=== PATIENT | female | born 1945 | race Caucasian/White ===

== ENCOUNTER → 2017-09-20 09:46 | Outpatient (CLI) | payer BC, SELFPAY ==
[2017-09-20 10:50] LABS: Hemoglobin A1C% w Est Avg Glu 5.1 % (4.0-6.0)
[2017-09-20 10:55] LABS: Alanine Aminotransferase 38 IU/L (9-52); Albumin 4.2 g/dL (3.5-5.0); Albumin Globulin Ratio 1.4 (1.0-2.8); Alkaline Phosphatase 83 U/L (38-126); Aspartate Aminotransferase 38 IU/L (14-36); BUN Creatinine Ratio 21.3 (6-22); Bilirubin Total 0.7 mg/dL (0.2-1.3); Blood Urea Nitrogen 17 mg/dL (7-17); Calcium 9.2 mg/dL (8.4-10.2); Carbon Dioxide 31 mmol/L (22-32); Chloride 101 mmol/L (98-107); Cholesterol 189 mg/dL (140-199); Estimated Glomerular Filt Rate > 60.0 mL/min (>60); Glucose 91 mg/dL (80-110); HDL Cholesterol 90 mg/dL (40-60); HEMOLYSIS 50 (0-50); LDL Cholesterol Calculated 87 mg/dL (<100); Potassium 4.6 mmol/L (3.4-5.1); Sodium 141 mmol/L (137-145); Total Protein 7.2 g/dL (6.3-8.2); Triglycerides 61 mg/dL (35-150)
[2017-09-20 11:30] LABS: Thyroid Stimulating Hormone 2.58 uIU/mL (0.47-4.68)
== END ==
PROVIDERS: PCP Nurse Practitioner; Visit Provider Nurse Practitioner
DX: I10 Essential (primary) hypertension (principal); E03.9 Hypothyroidism, unspecified; R73.01 Impaired fasting glucose
CPT/HCPCS: 36415; 80053; 80061; 83036; 84443

== ENCOUNTER 2018-01-09 20:14 | Observation (INO) | payer BC, SELFPAY ==
[2018-01-09 20:26] VITALS: BP 141/67; PULSE 97; RESP 21; TEMP 37.3; O2SAT 97
--- NOTE | 2018-01-09 20:26 | DI.RAD.S_ITS ---
PROCEDURE: XR CHEST 2V INDICATIONS: shortness of breath TECHNIQUE: 2 views of the chest were acquired. COMPARISON: [facility], CR, CHEST 2VW, 03/30/2010, 19:11. [facility], CR, CHEST 1VW (PORTABLE), 10/28/2012, 8:57. FINDINGS: Surgical changes and devices: Clips are noted overlying the right lower neck. Lungs and pleura: No pleural effusions or pneumothorax. Increased pulmonary vascularity is present. Mediastinum: Mediastinal contours are normal. Heart size is normal. Bones and chest wall: No suspicious bony abnormalities. Soft tissues appear unremarkable. IMPRESSION: Increased pulmonary vascularity suggestive of edema. Dictated by: Doris Barnhart M.D. on 01/09/2018 at 21:20 Approved by: Doris Barnhart M.D. on 01/09/2018 at 21:21
--- NOTE | 2018-01-09 20:47 | DI.RAD.S_ITS ---
PROCEDURE: XR ABDOMEN MIN 2V INDICATIONS: chills, cough, vomiting today, uri x 1 week TECHNIQUE: 2 views of the abdomen were acquired. COMPARISON: None. FINDINGS: Surgical changes and devices: None. Bowel: No pneumoperitoneum. The bowel gas pattern demonstrates prominent stool throughout the colon. There several minimal scattered air-fluid levels. Soft tissues: No masses; visualized solid organ contours appear normal in size. No suspicious abdominal calcifications. Bones: No suspicious bony abnormalities. IMPRESSION: Minimal scattered air-fluid levels most suggestive of partial small bowel obstruction secondary to significant stool. Dictated by: Doris Barnhart M.D. on 01/09/2018 at 21:21 Approved by: Doris Barnhart M.D. on 01/09/2018 at 21:22
--- NOTE | 2018-01-09 20:50 | ED.SOB ---
HPI - SOB/Dyspnea General Chief Complaint: Shortness of Breath/Dyspnea Stated Complaint: COUGH FEVER NOT WELL Time Seen by Provider: 01/09/18 20:40 Source: patient and family () Limitations: no limitations History of Present Illness This is a 72-year-old female comes to the emergency department with complaint of cough and upper respiratory symptoms for 1 week. Patient states she started to feel some symptoms in her chest and has felt like it has been a little bit difficult to breathe. She denies any chest pain or pressure. She went to the walk-in clinic today because she felt a lot worse today and was referred here to the ED. She has had shaking chills and felt like she was feverish intermittently. She has been coughing up productive sputum. She has also been nauseated and had some emesis. She has also been having some diarrhea. She has chronic urinary incontinence and has not noticed a new change. She has not had any new rashes or skin changes. She denies any headache or neck pain. Patient does not smoke. She has a history of hypothyroidism after partial thyroidectomy. She uses estrogen and takes be appropriate for moved it takes losartan for blood pressure. Related Data Home Medications Medication Instructions Recorded Confirmed bupropion HCl SR 100 mg tablet,12 100 mg PO BID 09/20/17 01/09/18 hr sustained-release levothyroxine 25 mcg capsule 25 mcg PO DAILY 09/20/17 01/09/18 losartan 25 mg tablet 25 mg PO DAILY 09/20/17 01/09/18 Previous Rx's Medication Instructions Recorded estradiol 0.01% (0.1 mg/gram) 1 gram VAG 2XW #42.5 gram 10/14/17 vaginal cream estradiol 0.025 mg/24 hr 1 patch TRANSDERMAL 2XW #8 each 10/14/17 semiweekly transdermal patch estradiol 10 mcg vaginal tablet 10 mcg VAG 2XW #8 tab 10/14/17 progesterone micronized 100 mg 100 mg PO QAM 30 Days #30 cap 10/14/17 capsule Allergies Allergy/AdvReac Type Severity Reaction Status Date / Time No Known Drug Allergies Allergy Verified 01/09/18 20:29 Review of Systems Review of Systems All systems reviewed & are unremarkable except as noted in HPI and below Constitutional Reports chills and Reports fever(s) Cardiovascular Denies chest pain, Reports diaphoresis, Denies syncope, Denies edema, Denies irregular heart rhythm, Denies lightheadedness, Denies palpitations, Reports dyspnea and Denies orthopnea Respiratory Reports chest congestion, Reports cough, Denies hemoptysis, Reports excessive phlegm production, Reports dyspnea, Denies stridor and Denies wheezing Gastrointestinal Gastrointestinal: Denies abdominal pain, Reports diarrhea, Reports nausea and Reports vomiting Genitourinary Denies urinary frequency, Reports urinary incontinence and Denies urinary urgency Musculoskeletal Reports myalgias Integumentary/Breasts Denies rash Neurologic Denies syncope Endocrine Denies palpitations Allergic/Immunologic Denies wheezing PFSH Medical History Hypertension (Chronic) Hypothyroid (Chronic) Surgical History H/O thyroidectomy (Chronic) Social History marital status: Smoking Status: Never smoker Exam Initial Vital Signs Initial Vital Signs: Vital Signs Temperature 99.2 F 01/09/18 20: Pulse Rate 97 H 01/09/18 20:26 Respiratory Rate 21 01/09/18 20:26 Blood Pressure 141/67 H 01/09/18 20:26 Pulse Oximetry 97 01/09/18 20:26 GEN: well nourished, well appearing Female, alert and oriented x 3, patient appears to be in moderate distress. Patient feels warm to the touch. She is not diaphoretic. HEENT: Atraumatic, pupils are equal round reactive to light, extraocular movements are intact, nares are clear. Throat is clear without any exudates, erythema, tonsillar enlargement or uvular deviation, no meningeal signs, negative Brudzinski and Kernig's. HEART: Regular rate and rhythm without murmur, clicks, rubs. LUNGS:Lungs are coarse bilaterally with mild crackles on the left, no wheezes, chest moves symmetrically. Tachypnea. No accessory muscle use. Patient speaks in full sentences. She does have productive cough with verdin yellow sputum. ABD:bowel sounds normal, soft, non-tender, no guarding, rebound, rigidity, no masses noted, no hepatosplenomegaly. Patient also had several episodes of dry heaving while being evaluated. :No CVA tenderness MSCL: Non-tender, no muscle atrophy, muscles strength 5/5 upper and lower extremities, full range of motion NEURO:CN 2-12 intact, sensation normal Scores qSOFA Altered Mental Status (GCS <15): No Respiratory rate greater than/equal to 22: No Systolic blood pressure less than or equal to 100: No qSOFA Total: 0 0-1 Not High Risk 1-3 High risk Course Orders Ordered: ED Orders 01/09/18 20:26 Consult to Respiratory Therapy Evaluate & Treat XR chest 2V Stat EKG-12 Lead Stat 01/09/18 20:47 XR abdomen min 2V Stat 01/09/18 20:55 Influenza A and B by PCR Rapid Stat 01/09/18 21:10 B Type Natriuretic Peptide Stat 01/09/18 21:15 Complete Blood Count AUTO DIFF Stat Lactate (Lactic Acid) Stat Partial Thromboplastin Time Stat Procalcitonin Stat Prothrombin Time INR Stat Troponin & CK Cardiac Panel Stat 01/09/18 21:45 Blood Culture Stat 01/09/18 22:05 Comprehensive Metabolic Panel Stat Lipase Stat 01/09/18 23:19 Urine Microscopic Stat Sodium Chloride (Normal Saline 0.9%) 2,449.41 mls @ 816.47 mls/hr 30 ml/kg infuse over 3 hr (2449.41 ml) IV CONT [facility] Last Infusion: 01/10/18 01:10 Dose: 816.47 mls/hr Admin: 01/09/18 21:10 Dose: 816.47 mls/hr Levofloxacin (Levaquin) 750 mg in 150 mls @ 100 mls/hr IV NOW [facility] Last Infusion: 01/10/18 01:10 Dose: 0 mls/hr Admin: 01/09/18 23:31 Dose: 100 mls/hr Discontinued Medications Acetaminophen (Tylenol) 975 mg PO NOW ONE Stop: 01/09/18 23:17 Last Admin: 01/09/18 23:29 Dose: 975 mg Ondansetron HCl (Zofran Odt) 4 mg PO NOW ONE Stop: 01/09/18 21:09 Last Admin: 01/09/18 21:11 Dose: 4 mg Reevaluation(s) Reevaluation #1: Patient feels much warmer and on recheck has fever. HR has also elevated and is 109-111 consistently in the room. Patient feels slightly better but still feels quite ill. Time: 23:10 Consultations Consultation #1: Dr. Boyer for admission for sepsis, suspected pneumonia although no clear radiographic evidence. HR and fever have both elevated during stay even after IV fluids. Patient labs are fairly normal. BP is appropriate. Influenza negative. Time: 23:18 Vital Signs - 8 hr 01/09/18 20:26 01/09/18 21:14 01/09/18 22:00 Temperature 99.2 F 100 F H Pulse Rate 97 H 103 H 106 H Respiratory Rate 21 24 19 Blood Pressure 141/67 H Blood Pressure [Right Arm] 137/68 133/64 Pulse Oximetry 97 92 92 01/09/18 23:02 01/09/18 23:29 01/10/18 00:07 Temperature 101.6 F H 101 F H Pulse Rate 109 H 101 H Respiratory Rate 24 20 Blood Pressure Blood Pressure [Right Arm] 128/68 107/48 L Pulse Oximetry 94 92 01/10/18 01:06 01/10/18 01:12 01/10/18 01:13 Temperature 99.9 F H 99.9 F H 99.9 F H Pulse Rate 98 H 98 H Respiratory Rate 20 20 Blood Pressure 115/62 Blood Pressure [Right Arm] 115/62 Pulse Oximetry 95 95 MDM - SOB/Dyspnea Lab Data Attestation: I reviewed the patient's lab results. Result diagrams: 01/09/18 21:15 01/09/18 22:05 Lab Results 01/09/18 01/09/18 01/09/18 Range/Units 20:55 21:10 21:15 WBC 11.1 H (4.5-11.0) X10^3/uL RBC 4.53 (4.0-5.2) X10^6/uL Hgb 14.1 (12.0-16.0) g/dL Hct 41.8 (36-46) % MCV 92.2 (80-100) fL MCH 31.2 (26-34) PG MCHC 33.9 (30-36) % RDW 12.6 (11.6-14.8) % Plt Count 197 (150-400) X10^3/uL Neut % (Auto) 91.1 H (50-75) % Lymph % (Auto) 5.3 L (25-40) % [place] % (Auto) 2.8 L (3-14) % Eos % (Auto) 0.7 L (2-4) % Baso % (Auto) 0.1 (0-2) % Neut # (Auto) 46802 H (6335-5494) /uL PT (10.1-12.7) SECONDS INR (0.9-1.3) APTT (26.4-36.2) SECONDS Sodium (137-145) mmol/L Potassium (3.4-5.1) mmol/L Chloride (98-107) mmol/L Carbon Dioxide (22-32) mmol/L BUN (7-17) mg/dL Creatinine (0.52-1.04) mg/dL Estimated GFR (>60) mL/min BUN/Creatinine Ratio (6-22) Glucose (80-110) mg/dL Lactate (0.7-2.1) mmol/L Calcium (8.4-10.2) mg/dL Total Bilirubin (0.2-1.3) mg/dL AST (14-36) IU/L ALT (9-52) IU/L Alkaline Phosphatase (38-126) U/L Total Creatine Kinase (30-135) U/L CK-MB (CK-2) CK-MB (CK-2) Rel Index Troponin I (0.01-0.034) ng/mL B-Natriuretic Peptide 39.8 (<100) Total Protein (6.3-8.2) g/dL Albumin (3.5-5.0) g/dL Globulin (1.7-4.1) g/dL Albumin/Globulin Ratio (1.0-2.8) Lipase (23-300) U/L Procalcitonin (<0.5) ng/mL Urine RBC (0-5/HPF) Urine WBC (0-5/HPF) Ur Squamous Epith Cells Urine Bacteria (None) Ur Culture Indicated? Micro UA Comment Influenza A & B (PCR) Negative (Negative) 01/09/18 01/09/18 01/09/18 Range/Units 21:15 21:15 21:15 WBC (4.5-11.0) X10^3/uL RBC (4.0-5.2) X10^6/uL Hgb (12.0-16.0) g/dL Hct (36-46) % MCV (80-100) fL MCH (26-34) PG MCHC (30-36) % RDW (11.6-14.8) % Plt Count (150-400) X10^3/uL Neut % (Auto) (50-75) % Lymph % (Auto) (25-40) % [place] % (Auto) (3-14) % Eos % (Auto) (2-4) % Baso % (Auto) (0-2) % Neut # (Auto) (1715-3975) /uL PT 11.3 (10.1-12.7) SECONDS INR 1.0 (0.9-1.3) APTT 33 (26.4-36.2) SECONDS Sodium (137-145) mmol/L Potassium (3.4-5.1) mmol/L Chloride (98-107) mmol/L Carbon Dioxide (22-32) mmol/L BUN (7-17) mg/dL Creatinine (0.52-1.04) mg/dL Estimated GFR (>60) mL/min BUN/Creatinine Ratio (6-22) Glucose (80-110) mg/dL Lactate 1.6 (0.7-2.1) mmol/L Calcium (8.4-10.2) mg/dL Total Bilirubin (0.2-1.3) mg/dL AST (14-36) IU/L ALT (9-52) IU/L Alkaline Phosphatase (38-126) U/L Total Creatine Kinase 84 (30-135) U/L CK-MB (CK-2) TNP CK-MB (CK-2) Rel Index TNP Troponin I < 0.012 (0.01-0.034) ng/mL B-Natriuretic Peptide (<100) Total Protein (6.3-8.2) g/dL Albumin (3.5-5.0) g/dL Globulin (1.7-4.1) g/dL Albumin/Globulin Ratio (1.0-2.8) Lipase (23-300) U/L Procalcitonin (<0.5) ng/mL Urine RBC (0-5/HPF) Urine WBC (0-5/HPF) Ur Squamous Epith Cells Urine Bacteria (None) Ur Culture Indicated? Micro UA Comment Influenza A & B (PCR) (Negative) 01/09/18 01/09/18 01/09/18 Range/Units 21:15 22:05 22:05 WBC (4.5-11.0) X10^3/uL RBC (4.0-5.2) X10^6/uL Hgb (12.0-16.0) g/dL Hct (36-46) % MCV (80-100) fL MCH (26-34) PG MCHC (30-36) % RDW (11.6-14.8) % Plt Count (150-400) X10^3/uL Neut % (Auto) (50-75) % Lymph % (Auto) (25-40) % [place] % (Auto) (3-14) % Eos % (Auto) (2-4) % Baso % (Auto) (0-2) % Neut # (Auto) (4747-9325) /uL PT (10.1-12.7) SECONDS INR (0.9-1.3) APTT (26.4-36.2) SECONDS Sodium 138 (137-145) mmol/L Potassium 3.6 (3.4-5.1) mmol/L Chloride 100 (98-107) mmol/L Carbon Dioxide 27 (22-32) mmol/L BUN 17 (7-17) mg/dL Creatinine 0.80 (0.52-1.04) mg/dL Estimated GFR > 60.0 (>60) mL/min BUN/Creatinine Ratio 21.3 (6-22) Glucose 116 H (80-110) mg/dL Lactate (0.7-2.1) mmol/L Calcium 8.7 (8.4-10.2) mg/dL Total Bilirubin 0.4 (0.2-1.3) mg/dL AST 41 H (14-36) IU/L ALT 31 (9-52) IU/L Alkaline Phosphatase 100 (38-126) U/L Total Creatine Kinase (30-135) U/L CK-MB (CK-2) CK-MB (CK-2) Rel Index Troponin I (0.01-0.034) ng/mL B-Natriuretic Peptide (<100) Total Protein 6.8 (6.3-8.2) g/dL Albumin 4.1 (3.5-5.0) g/dL Globulin 2.7 (1.7-4.1) g/dL Albumin/Globulin Ratio 1.5 (1.0-2.8) Lipase 72 (23-300) U/L Procalcitonin < 0.05 (<0.5) ng/mL Urine RBC (0-5/HPF) Urine WBC (0-5/HPF) Ur Squamous Epith Cells Urine Bacteria (None) Ur Culture Indicated? Micro UA Comment Influenza A & B (PCR) (Negative) 01/09/18 Range/Units 23:19 WBC (4.5-11.0) X10^3/uL RBC (4.0-5.2) X10^6/uL Hgb (12.0-16.0) g/dL Hct (36-46) % MCV (80-100) fL MCH (26-34) PG MCHC (30-36) % RDW (11.6-14.8) % Plt Count (150-400) X10^3/uL Neut % (Auto) (50-75) % Lymph % (Auto) (25-40) % [place] % (Auto) (3-14) % Eos % (Auto) (2-4) % Baso % (Auto) (0-2) % Neut # (Auto) (2280-5510) /uL PT (10.1-12.7) SECONDS INR (0.9-1.3) APTT (26.4-36.2) SECONDS Sodium (137-145) mmol/L Potassium (3.4-5.1) mmol/L Chloride (98-107) mmol/L Carbon Dioxide (22-32) mmol/L BUN (7-17) mg/dL Creatinine (0.52-1.04) mg/dL Estimated GFR (>60) mL/min BUN/Creatinine Ratio (6-22) Glucose (80-110) mg/dL Lactate (0.7-2.1) mmol/L Calcium (8.4-10.2) mg/dL Total Bilirubin (0.2-1.3) mg/dL AST (14-36) IU/L ALT (9-52) IU/L Alkaline Phosphatase (38-126) U/L Total Creatine Kinase (30-135) U/L CK-MB (CK-2) CK-MB (CK-2) Rel Index Troponin I (0.01-0.034) ng/mL B-Natriuretic Peptide (<100) Total Protein (6.3-8.2) g/dL Albumin (3.5-5.0) g/dL Globulin (1.7-4.1) g/dL Albumin/Globulin Ratio (1.0-2.8) Lipase (23-300) U/L Procalcitonin (<0.5) ng/mL Urine RBC 0-1/hpf (0-5/HPF) Urine WBC 0-1/hpf (0-5/HPF) Ur Squamous Epith Cells 0-1 /hpf Urine Bacteria Occasional (0-1) (None) Ur Culture Indicated? Cult not indicated Micro UA Comment Not Reportable Influenza A & B (PCR) (Negative) Urine Dip Bedside Urine Glucose Negative Bedside Urine Bilirubin - Negative Bedside Urine Ketone + 15 Urine Specific [place] 1.025 Bedside Urine Occult Blood - Negative Bedside Urine pH 6.0 Bedside Urine Protein - Negative Bedside Urine Urobilinogen - Negative Bedside Urine Nitrite - Negative Bedside Urine Leukocytes - Negative Esterase Imaging Data Chest x-ray: Radiologist's impression: [address] [address] XRay Report Signed Patient: Richa Valenzuela MR#: [id number] : 1945 Acct:[id number] Age/Sex: 72 / F Date of Service: 01/09/18 Loc: ED Accession Number: [id number] Procedure: XR chest 2V Ordering Provider: Dejah Tubbs D.O. PROCEDURE: XR CHEST 2V INDICATIONS: shortness of breath TECHNIQUE: 2 views of the chest were acquired. COMPARISON: [facility], CHEST 2VW, 03/30/2010, 19:11. [facility], CHEST 1VW (PORTABLE), 10/28/2012, 8:57. FINDINGS: Surgical changes and devices: Clips are noted overlying the right lower neck. Lungs and pleura: No pleural effusions or pneumothorax. Increased pulmonary vascularity is present. Mediastinum: Mediastinal contours are normal. Heart size is normal. Bones and chest wall: No suspicious bony abnormalities. Soft tissues appear unremarkable. IMPRESSION: Increased pulmonary vascularity suggestive of edema. Dictated by: Doris Barnhart M.D. on 01/09/2018 at 21:20 Approved by: Doris Barnhart M.D. on 01/09/2018 at 21:21 Abdominal x-ray: Radiologist's impression: [address] [address] XRay Report Signed Patient: Richa Valenzuela#: [id number] : 1945 Acct:[id number] Age/Sex: 72 / F Date of Service: 01/09/18 Loc: ED Accession Number: [id number] Procedure: XR abdomen min 2V Ordering Provider: Dejah Tubbs D.O. PROCEDURE: XR ABDOMEN MIN 2V INDICATIONS: chills, cough, vomiting today, uri x 1 week TECHNIQUE: 2 views of the abdomen were acquired. COMPARISON: None. FINDINGS: Surgical changes and devices: None. Bowel: No pneumoperitoneum. The bowel gas pattern demonstrates prominent stool throughout the colon. There several minimal scattered air-fluid levels. Soft tissues: No masses; visualized solid organ contours appear normal in size. No suspicious abdominal calcifications. Bones: No suspicious bony abnormalities. IMPRESSION: Minimal scattered air-fluid levels most suggestive of partial small bowel obstruction secondary to significant stool. Dictated by: Doris Barnhart M.D. on 01/09/2018 at 21:21 Approved by: Doris Barnhart M.D. on 01/09/2018 at 21:22 ECG Data Attestation: I personally reviewed and interpreted this ECG as follows: Interpretation: Sinus tachycardia with a rate of 96, QRS of 133, QTC of 456. NC intervals appears appropriate. Patient does not have any ST elevation noted. Nonspecific ST changes. No prior EKGs available MDM Narrative Medical decision making narrative: This is a 72-year-old who meets SIRS criteria by virtue of fever and elevated heart rate into the 100s. Patient does not have an elevated white blood cell count, her source of infection is suspected to be pneumonia. Here at the hospital she has had a thick coarse cough with productive sputum. Her chest x-ray was inconclusive for pneumonia, there was some question of air-fluid levels on her abdominal x-ray but patient only started having diarrhea today and had normal bowel movements yesterday. She has had about a week of respiratory symptoms followed by an acute worsening today. My suspicion is that even though her chest x-ray is clear she does have a pneumonia and was treated with antibiotics. Urine did not show any source of infection. Influenza testing was negative. Patient heart rate still continues to be slightly high even after a liter and half of fluids. Patient discussed with Dr. Li and plan for observation. Discharge Plan Departure Patient Disposition: Admitted as Observation Clinical Impression: Sepsis, Pneumonia Discharge Date/Time: 01/10/18 01:15 Interventions: ED Discharge Assessment Last Done: 01/10/18 01:13 Admit Date/Time: 01/10/18 01:01 Admit Provider: Gabriel Boyer
--- NOTE | 2018-01-09 20:53 | ED_ITS ---
HPI - SOB/Dyspnea General Chief Complaint: Shortness of Breath/Dyspnea Stated Complaint: COUGH FEVER NOT WELL Time Seen by Provider: 01/09/18 20:40 Source: patient and family () Limitations: no limitations History of Present Illness This is a 72-year-old female comes to the emergency department with complaint of cough and upper respiratory symptoms for 1 week. Patient states she started to feel some symptoms in her chest and has felt like it has been a little bit difficult to breathe. She denies any chest pain or pressure. She went to the walk-in clinic today because she felt a lot worse today and was referred here to the ED. She has had shaking chills and felt like she was feverish intermittently. She has been coughing up productive sputum. She has also been nauseated and had some emesis. She has also been having some diarrhea. She has chronic urinary incontinence and has not noticed a new change. She has not had any new rashes or skin changes. She denies any headache or neck pain. Patient does not smoke. She has a history of hypothyroidism after partial thyroidectomy. She uses estrogen and takes be appropriate for moved it takes losartan for blood pressure. Related Data Home Medications Medication Instructions Recorded Confirmed bupropion HCl SR 100 mg tablet,12 100 mg PO BID 09/20/17 01/09/18 hr sustained-release levothyroxine 25 mcg capsule 25 mcg PO DAILY 09/20/17 01/09/18 losartan 25 mg tablet 25 mg PO DAILY 09/20/17 01/09/18 Previous Rx's Medication Instructions Recorded estradiol 0.01% (0.1 mg/gram) 1 gram VAG 2XW #42.5 gram 10/14/17 vaginal cream estradiol 0.025 mg/24 hr 1 patch TRANSDERMAL 2XW #8 each 10/14/17 semiweekly transdermal patch estradiol 10 mcg vaginal tablet 10 mcg VAG 2XW #8 tab 10/14/17 progesterone micronized 100 mg 100 mg PO QAM 30 Days #30 cap 10/14/17 capsule Allergies Allergy/AdvReac Type Severity Reaction Status Date / Time No Known Drug Allergies Allergy Verified 01/09/18 20:29 Review of Systems Review of Systems All systems reviewed & are unremarkable except as noted in HPI and below Constitutional Reports chills and Reports fever(s) Cardiovascular Denies chest pain, Reports diaphoresis, Denies syncope, Denies edema, Denies irregular heart rhythm, Denies lightheadedness, Denies palpitations, Reports dyspnea and Denies orthopnea Respiratory Reports chest congestion, Reports cough, Denies hemoptysis, Reports excessive phlegm production, Reports dyspnea, Denies stridor and Denies wheezing Gastrointestinal Gastrointestinal: Denies abdominal pain, Reports diarrhea, Reports nausea and Reports vomiting Genitourinary Denies urinary frequency, Reports urinary incontinence and Denies urinary urgency Musculoskeletal Reports myalgias Integumentary/Breasts Denies rash Neurologic Denies syncope Endocrine Denies palpitations Allergic/Immunologic Denies wheezing PFSH Medical History Hypertension (Chronic) Hypothyroid (Chronic) Surgical History H/O thyroidectomy (Chronic) Social History marital status: Smoking Status: Never smoker Exam Initial Vital Signs Initial Vital Signs: Vital Signs Temperature 99.2 F 01/09/18 20: Pulse Rate 97 H 01/09/18 20:26 Respiratory Rate 21 01/09/18 20:26 Blood Pressure 141/67 H 01/09/18 20:26 Pulse Oximetry 97 01/09/18 20:26 GEN: well nourished, well appearing Female, alert and oriented x 3, patient appears to be in moderate distress. Patient feels warm to the touch. She is not diaphoretic. HEENT: Atraumatic, pupils are equal round reactive to light, extraocular movements are intact, nares are clear. Throat is clear without any exudates, erythema, tonsillar enlargement or uvular deviation, no meningeal signs, negative Brudzinski and Kernig's. HEART: Regular rate and rhythm without murmur, clicks, rubs. LUNGS:Lungs are coarse bilaterally with mild crackles on the left, no wheezes, chest moves symmetrically. Tachypnea. No accessory muscle use. Patient speaks in full sentences. She does have productive cough with verdin yellow sputum. ABD:bowel sounds normal, soft, non-tender, no guarding, rebound, rigidity, no masses noted, no hepatosplenomegaly. Patient also had several episodes of dry heaving while being evaluated. :No CVA tenderness MSCL: Non-tender, no muscle atrophy, muscles strength 5/5 upper and lower extremities, full range of motion NEURO:CN 2-12 intact, sensation normal Scores qSOFA Altered Mental Status (GCS <15): No Respiratory rate greater than/equal to 22: No Systolic blood pressure less than or equal to 100: No qSOFA Total: 0 0-1 Not High Risk 1-3 High risk Course Orders Ordered: ED Orders 01/09/18 20:26 Consult to Respiratory Therapy Evaluate & Treat XR chest 2V Stat EKG-12 Lead Stat 01/09/18 20:47 XR abdomen min 2V Stat 01/09/18 20:55 Influenza A and B by PCR Rapid Stat 01/09/18 21:10 B Type Natriuretic Peptide Stat 01/09/18 21:15 Complete Blood Count AUTO DIFF Stat Lactate (Lactic Acid) Stat Partial Thromboplastin Time Stat Procalcitonin Stat Prothrombin Time INR Stat Troponin & CK Cardiac Panel Stat 01/09/18 21:45 Blood Culture Stat 01/09/18 22:05 Comprehensive Metabolic Panel Stat Lipase Stat 01/09/18 23:19 Urine Microscopic Stat Sodium Chloride (Normal Saline 0.9%) 2,449.41 mls @ 816.47 mls/hr 30 ml/kg infuse over 3 hr (2449.41 ml) IV CONT [facility] Last Infusion: 01/10/18 01:10 Dose: 816.47 mls/hr Admin: 01/09/18 21:10 Dose: 816.47 mls/hr Levofloxacin (Levaquin) 750 mg in 150 mls @ 100 mls/hr IV NOW [facility] Last Infusion: 01/10/18 01:10 Dose: 0 mls/hr Admin: 01/09/18 23:31 Dose: 100 mls/hr Discontinued Medications Acetaminophen (Tylenol) 975 mg PO NOW ONE Stop: 01/09/18 23:17 Last Admin: 01/09/18 23:29 Dose: 975 mg Ondansetron HCl (Zofran Odt) 4 mg PO NOW ONE Stop: 01/09/18 21:09 Last Admin: 01/09/18 21:11 Dose: 4 mg Reevaluation(s) Reevaluation #1: Patient feels much warmer and on recheck has fever. HR has also elevated and is 109-111 consistently in the room. Patient feels slightly better but still feels quite ill. Time: 23:10 Consultations Consultation #1: Dr. Boyer for admission for sepsis, suspected pneumonia although no clear radiographic evidence. HR and fever have both elevated during stay even after IV fluids. Patient labs are fairly normal. BP is appropriate. Influenza negative. Time: 23:18 Vital Signs - 8 hr 01/09/18 20:26 01/09/18 21:14 01/09/18 22:00 Temperature 99.2 F 100 F H Pulse Rate 97 H 103 H 106 H Respiratory Rate 21 24 19 Blood Pressure 141/67 H Blood Pressure [Right Arm] 137/68 133/64 Pulse Oximetry 97 92 92 01/09/18 23:02 01/09/18 23:29 01/10/18 00:07 Temperature 101.6 F H 101 F H Pulse Rate 109 H 101 H Respiratory Rate 24 20 Blood Pressure Blood Pressure [Right Arm] 128/68 107/48 L Pulse Oximetry 94 92 01/10/18 01:06 01/10/18 01:12 01/10/18 01:13 Temperature 99.9 F H 99.9 F H 99.9 F H Pulse Rate 98 H 98 H Respiratory Rate 20 20 Blood Pressure 115/62 Blood Pressure [Right Arm] 115/62 Pulse Oximetry 95 95 MDM - SOB/Dyspnea Lab Data Attestation: I reviewed the patient's lab results. Result diagrams: 01/09/18 21:15 01/09/18 22:05 Lab Results 01/09/18 01/09/18 01/09/18 Range/Units 20:55 21:10 21:15 WBC 11.1 H (4.5-11.0) X10^3/uL RBC 4.53 (4.0-5.2) X10^6/uL Hgb 14.1 (12.0-16.0) g/dL Hct 41.8 (36-46) % MCV 92.2 (80-100) fL MCH 31.2 (26-34) PG MCHC 33.9 (30-36) % RDW 12.6 (11.6-14.8) % Plt Count 197 (150-400) X10^3/uL Neut % (Auto) 91.1 H (50-75) % Lymph % (Auto) 5.3 L (25-40) % [place] % (Auto) 2.8 L (3-14) % Eos % (Auto) 0.7 L (2-4) % Baso % (Auto) 0.1 (0-2) % Neut # (Auto) 85816 H (2538-5928) /uL PT (10.1-12.7) SECONDS INR (0.9-1.3) APTT (26.4-36.2) SECONDS Sodium (137-145) mmol/L Potassium (3.4-5.1) mmol/L Chloride (98-107) mmol/L Carbon Dioxide (22-32) mmol/L BUN (7-17) mg/dL Creatinine (0.52-1.04) mg/dL Estimated GFR (>60) mL/min BUN/Creatinine Ratio (6-22) Glucose (80-110) mg/dL Lactate (0.7-2.1) mmol/L Calcium (8.4-10.2) mg/dL Total Bilirubin (0.2-1.3) mg/dL AST (14-36) IU/L ALT (9-52) IU/L Alkaline Phosphatase (38-126) U/L Total Creatine Kinase (30-135) U/L CK-MB (CK-2) CK-MB (CK-2) Rel Index Troponin I (0.01-0.034) ng/mL B-Natriuretic Peptide 39.8 (<100) Total Protein (6.3-8.2) g/dL Albumin (3.5-5.0) g/dL Globulin (1.7-4.1) g/dL Albumin/Globulin Ratio (1.0-2.8) Lipase (23-300) U/L Procalcitonin (<0.5) ng/mL Urine RBC (0-5/HPF) Urine WBC (0-5/HPF) Ur Squamous Epith Cells Urine Bacteria (None) Ur Culture Indicated? Micro UA Comment Influenza A & B (PCR) Negative (Negative) 01/09/18 01/09/18 01/09/18 Range/Units 21:15 21:15 21:15 WBC (4.5-11.0) X10^3/uL RBC (4.0-5.2) X10^6/uL Hgb (12.0-16.0) g/dL Hct (36-46) % MCV (80-100) fL MCH (26-34) PG MCHC (30-36) % RDW (11.6-14.8) % Plt Count (150-400) X10^3/uL Neut % (Auto) (50-75) % Lymph % (Auto) (25-40) % [place] % (Auto) (3-14) % Eos % (Auto) (2-4) % Baso % (Auto) (0-2) % Neut # (Auto) (1391-5986) /uL PT 11.3 (10.1-12.7) SECONDS INR 1.0 (0.9-1.3) APTT 33 (26.4-36.2) SECONDS Sodium (137-145) mmol/L Potassium (3.4-5.1) mmol/L Chloride (98-107) mmol/L Carbon Dioxide (22-32) mmol/L BUN (7-17) mg/dL Creatinine (0.52-1.04) mg/dL Estimated GFR (>60) mL/min BUN/Creatinine Ratio (6-22) Glucose (80-110) mg/dL Lactate 1.6 (0.7-2.1) mmol/L Calcium (8.4-10.2) mg/dL Total Bilirubin (0.2-1.3) mg/dL AST (14-36) IU/L ALT (9-52) IU/L Alkaline Phosphatase (38-126) U/L Total Creatine Kinase 84 (30-135) U/L CK-MB (CK-2) TNP CK-MB (CK-2) Rel Index TNP Troponin I < 0.012 (0.01-0.034) ng/mL B-Natriuretic Peptide (<100) Total Protein (6.3-8.2) g/dL Albumin (3.5-5.0) g/dL Globulin (1.7-4.1) g/dL Albumin/Globulin Ratio (1.0-2.8) Lipase (23-300) U/L Procalcitonin (<0.5) ng/mL Urine RBC (0-5/HPF) Urine WBC (0-5/HPF) Ur Squamous Epith Cells Urine Bacteria (None) Ur Culture Indicated? Micro UA Comment Influenza A & B (PCR) (Negative) 01/09/18 01/09/18 01/09/18 Range/Units 21:15 22:05 22:05 WBC (4.5-11.0) X10^3/uL RBC (4.0-5.2) X10^6/uL Hgb (12.0-16.0) g/dL Hct (36-46) % MCV (80-100) fL MCH (26-34) PG MCHC (30-36) % RDW (11.6-14.8) % Plt Count (150-400) X10^3/uL Neut % (Auto) (50-75) % Lymph % (Auto) (25-40) % [place] % (Auto) (3-14) % Eos % (Auto) (2-4) % Baso % (Auto) (0-2) % Neut # (Auto) (4733-6588) /uL PT (10.1-12.7) SECONDS INR (0.9-1.3) APTT (26.4-36.2) SECONDS Sodium 138 (137-145) mmol/L Potassium 3.6 (3.4-5.1) mmol/L Chloride 100 (98-107) mmol/L Carbon Dioxide 27 (22-32) mmol/L BUN 17 (7-17) mg/dL Creatinine 0.80 (0.52-1.04) mg/dL Estimated GFR > 60.0 (>60) mL/min BUN/Creatinine Ratio 21.3 (6-22) Glucose 116 H (80-110) mg/dL Lactate (0.7-2.1) mmol/L Calcium 8.7 (8.4-10.2) mg/dL Total Bilirubin 0.4 (0.2-1.3) mg/dL AST 41 H (14-36) IU/L ALT 31 (9-52) IU/L Alkaline Phosphatase 100 (38-126) U/L Total Creatine Kinase (30-135) U/L CK-MB (CK-2) CK-MB (CK-2) Rel Index Troponin I (0.01-0.034) ng/mL B-Natriuretic Peptide (<100) Total Protein 6.8 (6.3-8.2) g/dL Albumin 4.1 (3.5-5.0) g/dL Globulin 2.7 (1.7-4.1) g/dL Albumin/Globulin Ratio 1.5 (1.0-2.8) Lipase 72 (23-300) U/L Procalcitonin < 0.05 (<0.5) ng/mL Urine RBC (0-5/HPF) Urine WBC (0-5/HPF) Ur Squamous Epith Cells Urine Bacteria (None) Ur Culture Indicated? Micro UA Comment Influenza A & B (PCR) (Negative) 01/09/18 Range/Units 23:19 WBC (4.5-11.0) X10^3/uL RBC (4.0-5.2) X10^6/uL Hgb (12.0-16.0) g/dL Hct (36-46) % MCV (80-100) fL MCH (26-34) PG MCHC (30-36) % RDW (11.6-14.8) % Plt Count (150-400) X10^3/uL Neut % (Auto) (50-75) % Lymph % (Auto) (25-40) % [place] % (Auto) (3-14) % Eos % (Auto) (2-4) % Baso % (Auto) (0-2) % Neut # (Auto) (9640-7488) /uL PT (10.1-12.7) SECONDS INR (0.9-1.3) APTT (26.4-36.2) SECONDS Sodium (137-145) mmol/L Potassium (3.4-5.1) mmol/L Chloride (98-107) mmol/L Carbon Dioxide (22-32) mmol/L BUN (7-17) mg/dL Creatinine (0.52-1.04) mg/dL Estimated GFR (>60) mL/min BUN/Creatinine Ratio (6-22) Glucose (80-110) mg/dL Lactate (0.7-2.1) mmol/L Calcium (8.4-10.2) mg/dL Total Bilirubin (0.2-1.3) mg/dL AST (14-36) IU/L ALT (9-52) IU/L Alkaline Phosphatase (38-126) U/L Total Creatine Kinase (30-135) U/L CK-MB (CK-2) CK-MB (CK-2) Rel Index Troponin I (0.01-0.034) ng/mL B-Natriuretic Peptide (<100) Total Protein (6.3-8.2) g/dL Albumin (3.5-5.0) g/dL Globulin (1.7-4.1) g/dL Albumin/Globulin Ratio (1.0-2.8) Lipase (23-300) U/L Procalcitonin (<0.5) ng/mL Urine RBC 0-1/hpf (0-5/HPF) Urine WBC 0-1/hpf (0-5/HPF) Ur Squamous Epith Cells 0-1 /hpf Urine Bacteria Occasional (0-1) (None) Ur Culture Indicated? Cult not indicated Micro UA Comment Not Reportable Influenza A & B (PCR) (Negative) Urine Dip Bedside Urine Glucose Negative Bedside Urine Bilirubin - Negative Bedside Urine Ketone + 15 Urine Specific Villalba 1.025 Bedside Urine Occult Blood - Negative Bedside Urine pH 6.0 Bedside Urine Protein - Negative Bedside Urine Urobilinogen - Negative Bedside Urine Nitrite - Negative Bedside Urine Leukocytes - Negative Esterase Imaging Data Chest x-ray: Radiologist's impression: [address] [address] XRay Report Signed Patient: Richa Valenzuela MR#: [id number] : 1945 Acct:[id number] Age/Sex: 72 / F Date of Service: 01/09/18 Loc: ED Accession Number: [id number] Procedure: XR chest 2V Ordering Provider: Dejah Tubbs D.O. PROCEDURE: XR CHEST 2V INDICATIONS: shortness of breath TECHNIQUE: 2 views of the chest were acquired. COMPARISON: [facility], CHEST 2VW, 03/30/2010, 19:11. [facility], CHEST 1VW (PORTABLE), 10/28/2012, 8:57. FINDINGS: Surgical changes and devices: Clips are noted overlying the right lower neck. Lungs and pleura: No pleural effusions or pneumothorax. Increased pulmonary vascularity is present. Mediastinum: Mediastinal contours are normal. Heart size is normal. Bones and chest wall: No suspicious bony abnormalities. Soft tissues appear unremarkable. IMPRESSION: Increased pulmonary vascularity suggestive of edema. Dictated by: Doris Barnhart M.D. on 01/09/2018 at 21:20 Approved by: Doris Barnhart M.D. on 01/09/2018 at 21:21 Abdominal x-ray: Radiologist's impression: [address] [id number] XRay Report Signed Patient: Richa Valenzuela#: [id number] : 1945 Acct:[id number] Age/Sex: 72 / F Date of Service: 01/09/18 Loc: ED Accession Number: [id number] Procedure: XR abdomen min 2V Ordering Provider: Dejah Tubbs D.O. PROCEDURE: XR ABDOMEN MIN 2V INDICATIONS: chills, cough, vomiting today, uri x 1 week TECHNIQUE: 2 views of the abdomen were acquired. COMPARISON: None. FINDINGS: Surgical changes and devices: None. Bowel: No pneumoperitoneum. The bowel gas pattern demonstrates prominent stool throughout the colon. There several minimal scattered air-fluid levels. Soft tissues: No masses; visualized solid organ contours appear normal in size. No suspicious abdominal calcifications. Bones: No suspicious bony abnormalities. IMPRESSION: Minimal scattered air-fluid levels most suggestive of partial small bowel obstruction secondary to significant stool. Dictated by: Doris Barnhart M.D. on 01/09/2018 at 21:21 Approved by: Doris Barnhart M.D. on 01/09/2018 at 21:22 ECG Data Attestation: I personally reviewed and interpreted this ECG as follows: Interpretation: Sinus tachycardia with a rate of 96, QRS of 133, QTC of 456. AL intervals appears appropriate. Patient does not have any ST elevation noted. Nonspecific ST changes. No prior EKGs available MDM Narrative Medical decision making narrative: This is a 72-year-old who meets SIRS criteria by virtue of fever and elevated heart rate into the 100s. Patient does not have an elevated white blood cell count, her source of infection is suspected to be pneumonia. Here at the hospital she has had a thick coarse cough with productive sputum. Her chest x-ray was inconclusive for pneumonia, there was some question of air-fluid levels on her abdominal x-ray but patient only started having diarrhea today and had normal bowel movements yesterday. She has had about a week of respiratory symptoms followed by an acute worsening today. My suspicion is that even though her chest x-ray is clear she does have a pneumonia and was treated with antibiotics. Urine did not show any source of infection. Influenza testing was negative. Patient heart rate still continues to be slightly high even after a liter and half of fluids. Patient discussed with Dr. Li and plan for observation. Discharge Plan Departure Patient Disposition: Admitted as Observation Clinical Impression: Sepsis, Pneumonia Discharge Date/Time: 01/10/18 01:15 Interventions: ED Discharge Assessment Last Done: 01/10/18 01:13 Admit Date/Time: 01/10/18 01:01 Admit Provider: Gabriel Boyer
--- NOTE | 2018-01-09 20:58 | PC.NURSE ---
Patient reports having a cough/cold for last week. [place] felt like she got hit hard fever, chills, nausea, diarrhea, lethargic. Dry heaves in room, coughing up thick mucous.
[2018-01-09] MEDS: SODIUM CHLORIDE 0.9% 2,449.41 ML 816.47 ML IV (21:10)
[2018-01-09] MEDS: ONDANSETRON 4 MG ODT PO (21:11)
[2018-01-09 21:14] VITALS: BP 137/68; PULSE 103; RESP 24; TEMP 37.7; O2SAT 92
[2018-01-09 21:26] LABS: Influenza A and B by PCR Rapid Negative (Negative)
[2018-01-09 21:28] LABS: Add Manual Diff / Slide Review NO; Basophils Percent Auto 0.1 % (0-2); Eosinophils Percent Auto 0.7 % (2-4); Hematocrit 41.8 % (36-46); Hemoglobin 14.1 g/dL (12.0-16.0); Lymphocytes Percent Auto 5.3 % (25-40); Mean Corpuscular HGB Conc 33.9 % (30-36); Mean Corpuscular Hemoglobin 31.2 PG (26-34); Mean Corpuscular Volume 92.2 fL (80-100); Monocytes Percent Auto 2.8 % (3-14); Neutrophils Absolute Auto 10100 /uL (3000-5900); Neutrophils Percent Auto 91.1 % (50-75); Platelet Count 197 X10^3/uL (150-400); Red Blood Cell Count 4.53 X10^6/uL (4.0-5.2); Red Cell Distribution Width 12.6 % (11.6-14.8); White Blood Cell Count 11.1 X10^3/uL (4.5-11.0)
[2018-01-09 21:31] LABS: Prothrombin Time 11.3 SECONDS (10.1-12.7)
[2018-01-09 21:33] LABS: PTT Partial Thromboplastin Tim 33 SECONDS (26.4-36.2)
[2018-01-09 21:34] LABS: Lactate (Lactic Acid) 1.6 mmol/L (0.7-2.1)
[2018-01-09 21:37] LABS: Creatine Kinase 84 U/L (30-135)
[2018-01-09 21:49] LABS: Troponin I < 0.012 ng/mL (0.01-0.034)
[2018-01-09 21:51] LABS: Procalcitonin < 0.05 ng/mL (<0.5)
[2018-01-09 22:00] VITALS: BP 133/64; PULSE 106; RESP 19; O2SAT 92
[2018-01-09 22:16] LABS: B Type Natriuretic Peptide 39.8 (<100)
[2018-01-09 22:23] LABS: Lipase 72 U/L (23-300)
[2018-01-09 22:25] LABS: Alanine Aminotransferase 31 IU/L (9-52); Albumin 4.1 g/dL (3.5-5.0); Albumin Globulin Ratio 1.5 (1.0-2.8); Alkaline Phosphatase 100 U/L (38-126); Aspartate Aminotransferase 41 IU/L (14-36); BUN Creatinine Ratio 21.3 (6-22); Bilirubin Total 0.4 mg/dL (0.2-1.3); Blood Urea Nitrogen 17 mg/dL (7-17); Calcium 8.7 mg/dL (8.4-10.2); Carbon Dioxide 27 mmol/L (22-32); Chloride 100 mmol/L (98-107); Estimated Glomerular Filt Rate > 60.0 mL/min (>60); Globulin 2.7 g/dL (1.7-4.1); Glucose 116 mg/dL (80-110); HEMOLYSIS < 15 (0-50); Potassium 3.6 mmol/L (3.4-5.1); Sodium 138 mmol/L (137-145); Total Protein 6.8 g/dL (6.3-8.2)
[2018-01-09 23:02] VITALS: BP 128/68; PULSE 109; RESP 24; TEMP 38.7; O2SAT 94
[2018-01-09 23:29] VITALS: TEMP 38.3
[2018-01-09] MEDS: ACETAMINOPHEN 325 MG TABLET 975 MG PO (23:29)
[2018-01-09] MEDS: levoFLOXacin 750 MG/150 ML PIGGYBACK 100 MG IV (23:31)
[2018-01-09 23:40] LABS: Bacteria Urine Occasional (0-1); Culture Indicated Urine Cult Not Indicated; RBC Urine 0-1/HPF (0-5/HPF); Squamous Epithelial Cell Urine 0-1 /HPF; WBC Urine 0-1/HPF (0-5/HPF)
[2018-01-10] VITALS (9 sets, daily range): BP systolic 107–132; BP diastolic 48–80; PULSE 67–101; RESP 16–20; TEMP 36.8–37.7; O2SAT 92–99; BMI 29.9
--- NOTE | 2018-01-10 | DI.CT.S_ITS ---
PROCEDURE: CT CHEST ABD PEL W CON INDICATIONS: eval for cancer and presence of PNA TECHNIQUE: After the administration of oral and intravenous contrast, 5 mm thick sections acquired from the lung apices to the symphysis. 5 mm coronal and sagittal reformats were performed, with additional 7 mm coronal MIP reformats through the lungs. For radiation dose reduction, the following was used: automated exposure control, adjustment of mA and/or kV according to patient size. COMPARISON: [facility], MG, MG SCREENING BILATERAL, 12/22/2010, 13:52. Outside Film, MG, MG SCREENING BILATERAL, 06/05/2008, 13:21. [facility], MG, MG SCREENING BILATERAL, 10/18/2017, 10:17. [facility], CR, XR CHEST 2V, 01/09/2018, 20:02. FINDINGS: Image quality: Excellent. CHEST: Lungs and pleura: Patchy pulmonary opacities are present at the right lung base suspicious for pneumonia. No other acute airspace opacities. No pulmonary nodules. No pleural effusion or pneumothorax. Mediastinum: Heart size is normal. No pericardial effusion. No mediastinal or hilar adenopathy by size criteria. Thoracic aorta and central pulmonary arteries are normal in size. Trace atheromatous calcifications are present the aortic arch. Esophagus is normal in caliber. Patient is status post fundoplication. Chest wall: No axillary or supraclavicular adenopathy by size criteria. Patient is status post right thyroid lobectomy. Left thyroid lobe is unremarkable. An 8 mm diameter soft tissue nodule is present at the 3:00 position in the left breast (series 2, image 39). ABDOMEN: Solid organs: Liver is normal in size and enhancement. Gallbladder is unremarkable. Biliary system is non dilated. Pancreas enhances normally. Spleen is normal in size and enhancement. No adrenal nodules. Kidneys demonstrate normal size and enhancement, without hydronephrosis. There is mild left perinephric fat stranding. Peritoneum and bowel: Bowel loops demonstrate normal wall thickness and caliber. The appendix is thin walled and gas filled. There are scattered sigmoid diverticula. No evidence for diverticulitis. No pneumoperitoneum. There is trace low density free pelvic fluid. Nodes and vessels: No retroperitoneal or mesenteric adenopathy by size criteria. Aorta and inferior vena cava are normal in size. Miscellaneous: No ventral hernias. PELVIS: Genitourinary: Bladder wall thickness is normal. Miscellaneous: No inguinal hernias or adenopathy. Bones: No suspicious bony lesions. No vertebral body compression fractures. IMPRESSION: 1. Right basilar pulmonary radiopacity suspicious for pneumonia.Short interval followup is recommended with resolution of the patient's symptoms to ensure there is no underlying pulmonary pathology. 2. Soft tissue nodule within the left breast. Although this may represent summer fibroglandular tissue, breast mass cannot be excluded and second look ultrasound and possible mammogram is recommended. 3. No other acute intra-abdominal findings. Normal appendix. 4. Diverticulosis. No acute diverticulitis. Dictated by: Vandana Oconnell M.D. on 01/10/2018 at 14:26 Approved by: Vandana Oconnell M.D. on 01/10/2018 at 14:48
[2018-01-10] MEDS: SODIUM CHLORIDE 0.9% 1,000 ML 125 ML IV (01:48)
--- NOTE | 2018-01-10 08:18 | PM.HP.1 ---
History of Present Illness Date Patient Seen: 01/10/18 Time Patient Seen: 06:49 Chief complaint: COUGH FEVER NOT WELL Narrative: History of present illness Patient is a pleasant 72 years of age female who notes sudden onset of fevers and chills nausea and chest discomfort over the past 1 week. Patient notes prior history of pneumonia about 2 years ago. Interestingly, patient notes her father has history of lung cancer with multiple admissions for pneumonia. Patient also has a sister with history of lung cancer as well. Patient as well as notes by the ER staff was that patient had a fairly obvious productive cough in the ER initially. Chest x-ray was negative for pneumonia process. Increased vascular congestion was noted. Patient notes on further questioning that she was preferring not to be admitted. This option was not discussed with patient. Patient was admitted overnight and placed to the floor with holding orders by the ER physician. Patient History Medical History Hypertension (Chronic) Hypothyroid (Chronic) Surgical History H/O thyroidectomy (Chronic) Comment: Past medical history Urinary incontinence Hypertension Hypothyroidism History of Willebrand's disease Prior history of community-acquired pneumonia 2 years ago Note history of the following: atherosclerotic heart disease, cancer, DVT or pulmonary embolism, diabetes, Social history Patient is . No history of smoking Surgical history Partial thyroidectomy Family history Father with history of lung cancer and multiple admissions for pneumonia Sister with history of lung cancer Family & Social History Social History: household members spouse Prior Living Arrangements House Safety & Behavioral: Feels Safe in Current Yes Environment Been Physically Hurt or No Threatened By a Person Suicidal Ideation Description None Suicide Plan Description No Plan Tobacco & Substance use: Smoking Status Never smoker alcohol intake frequency 0-2 drinks per day Substance Use Type does not use Meds Home Medications Medication Instructions Recorded Confirmed Type bupropion HCl SR 100 mg tablet,12 100 mg PO BID 09/20/17 01/09/18 History hr sustained-release levothyroxine 25 mcg capsule 25 mcg PO DAILY 09/20/17 01/09/18 History losartan 25 mg tablet 25 mg PO DAILY 09/20/17 01/09/18 History estradiol 0.01% (0.1 mg/gram) 1 gram VAG 2XW #42.5 gram 10/14/17 01/09/18 Rx vaginal cream estradiol 0.025 mg/24 hr 1 patch TRANSDERMAL 2XW #8 each 10/14/17 01/09/18 Rx semiweekly transdermal patch estradiol 10 mcg vaginal tablet 10 mcg VAG 2XW #8 tab 10/14/17 01/09/18 Rx progesterone micronized 100 mg 100 mg PO QAM 30 Days #30 cap 10/14/17 01/09/18 Rx capsule Allergies Allergy/AdvReac Type Severity Reaction Status Date / Time No Known Drug Allergies Allergy Verified 01/09/18 20:29 Review of Systems Review of Systems A 10 point review of system was obtained from patient directly. Symptoms as described in history of present illness noted Patient with fever chills cough nausea chest tightness Exam Vital Signs (past 8 hours): - 01/10/18 01:06 01/10/18 01:12 01/10/18 01:13 Temperature 99.9 F H 99.9 F H 99.9 F H Pulse Rate 98 H 98 H Respiratory Rate 20 20 Blood Pressure 115/62 Blood Pressure [Right Arm] 115/62 Pulse Oximetry 95 95 01/10/18 01:30 01/10/18 06:30 Temperature 98.5 F 98.9 F Pulse Rate 99 H 82 Respiratory Rate 16 16 Blood Pressure 125/70 119/67 Blood Pressure [Right Arm] Pulse Oximetry 92 94 Oxygen Delivery Method Room Air Narrative Exam Narrative: General appearance patient is not awake and alert in no apparent distress at rest no respiratory distress Psychiatric well oriented to time place and person the mood is pleasant affect is appropriate Skin no rashes or lesions good turgor nonjaundiced Eyes pupils are equal round and reactive to light Ears nose and throat hearing is grossly intact no septum to midline with no bleeding no oropharyngeal lesions Respiratory fairly clear to auscultation no wheezes no crackles good air flow Cardiovascular regular rate rhythm no murmur rubs or gallops GI nontender positive bowel sounds no masses no distention no bruits Lymph nodes no lymphadenopathy to neck or axilla Musculoskeletal strength 5/5 no clubbing noted range of motion normal Neurologic no focal neurologic changes cranial nerves 2-12 no tremor noted proprioception intact Objective Labs Result Diagrams: 01/09/18 21:15 01/09/18 22:05 Labs: Laboratory Results - last 24 hr 01/09/18 01/09/18 01/09/18 20:55 21:10 21:15 WBC 11.1 H RBC 4.53 Hgb 14.1 Hct 41.8 MCV 92.2 MCH 31.2 MCHC 33.9 RDW 12.6 Plt Count 197 Neut % (Auto) 91.1 H Lymph % (Auto) 5.3 L [place] % (Auto) 2.8 L Eos % (Auto) 0.7 L Baso % (Auto) 0.1 Neut # (Auto) 92480 H PT INR APTT Sodium Potassium Chloride Carbon Dioxide BUN Creatinine Estimated GFR BUN/Creatinine Ratio Glucose Lactate Calcium Total Bilirubin AST ALT Alkaline Phosphatase Total Creatine Kinase CK-MB (CK-2) CK-MB (CK-2) Rel Index Troponin I B-Natriuretic Peptide 39.8 Total Protein Albumin Globulin Albumin/Globulin Ratio Lipase Procalcitonin Urine RBC Urine WBC Ur Squamous Epith Cells Urine Bacteria Ur Culture Indicated? Micro UA Comment Influenza A & B (PCR) Negative 01/09/18 01/09/18 01/09/18 21:15 21:15 21:15 WBC RBC Hgb Hct MCV MCH MCHC RDW Plt Count Neut % (Auto) Lymph % (Auto) [place] % (Auto) Eos % (Auto) Baso % (Auto) Neut # (Auto) PT 11.3 INR 1.0 APTT 33 Sodium Potassium Chloride Carbon Dioxide BUN Creatinine Estimated GFR BUN/Creatinine Ratio Glucose Lactate 1.6 Calcium Total Bilirubin AST ALT Alkaline Phosphatase Total Creatine Kinase 84 CK-MB (CK-2) TNP CK-MB (CK-2) Rel Index TNP Troponin I < 0.012 B-Natriuretic Peptide Total Protein Albumin Globulin Albumin/Globulin Ratio Lipase Procalcitonin Urine RBC Urine WBC Ur Squamous Epith Cells Urine Bacteria Ur Culture Indicated? Micro UA Comment Influenza A & B (PCR) 01/09/18 01/09/18 01/09/18 21:15 22:05 22:05 WBC RBC Hgb Hct MCV MCH MCHC RDW Plt Count Neut % (Auto) Lymph % (Auto) [place] % (Auto) Eos % (Auto) Baso % (Auto) Neut # (Auto) PT INR APTT Sodium 138 Potassium 3.6 Chloride 100 Carbon Dioxide 27 BUN 17 Creatinine 0.80 Estimated GFR > 60.0 BUN/Creatinine Ratio 21.3 Glucose 116 H Lactate Calcium 8.7 Total Bilirubin 0.4 AST 41 H ALT 31 Alkaline Phosphatase 100 Total Creatine Kinase CK-MB (CK-2) CK-MB (CK-2) Rel Index Troponin I B-Natriuretic Peptide Total Protein 6.8 Albumin 4.1 Globulin 2.7 Albumin/Globulin Ratio 1.5 Lipase 72 Procalcitonin < 0.05 Urine RBC Urine WBC Ur Squamous Epith Cells Urine Bacteria Ur Culture Indicated? Micro UA Comment Influenza A & B (PCR) 01/09/18 23:19 WBC RBC Hgb Hct MCV MCH MCHC RDW Plt Count Neut % (Auto) Lymph % (Auto) [place] % (Auto) Eos % (Auto) Baso % (Auto) Neut # (Auto) PT INR APTT Sodium Potassium Chloride Carbon Dioxide BUN Creatinine Estimated GFR BUN/Creatinine Ratio Glucose Lactate Calcium Total Bilirubin AST ALT Alkaline Phosphatase Total Creatine Kinase CK-MB (CK-2) CK-MB (CK-2) Rel Index Troponin I B-Natriuretic Peptide Total Protein Albumin Globulin Albumin/Globulin Ratio Lipase Procalcitonin Urine RBC 0-1/hpf Urine WBC 0-1/hpf Ur Squamous Epith Cells 0-1 /hpf Urine Bacteria Occasional (0-1) Ur Culture Indicated? Cult not indicated Micro UA Comment Not Reportable Influenza A & B (PCR) Assessment & Plan Plan: Assessment/Plan Narrative: Acute tracheobronchitis Note patient with chest x-ray without evidence for pneumonia Patient has history of father and sister with lung cancer. Will discuss with patient her undergoing a CT of the chest and abdomen with and without contrast Will continue the Levaquin antibiotic that was started by ER physician last evening Patient may be a possible candidate for discharge later today. Curb 65 score of 1 out of 5 due to her age of 72 years of age. No significant comorbidities in her history. Usual criteria to consider for discharge to home with outpatient treatment for patients with a score of 0-1 out of 5 points possible on the curb 65 score. Hypertension history Continue blood pressure meds as tolerated Hypothyroidism Continue Synthroid Time Spent With Patient Time with patient: Greater than 35 minutes (45 min)
--- NOTE | 2018-01-10 09:28 | CM.DANOTE ---
Addendum entered by Lorrie Leonard LPN 01/10/18 11:32: Pt is a 72 year old female who admitted early this morning to care of the hospitalist team. Payer: MARIAH Manzanares confims in Team Rounds that he plans to send pt home today. P: follow prn but at this point no d/c needs are identified. Original Note: Discharge Planning/Care Management DCP: assessment: case received and met this morning 0800 with pt. Introduced self and role. Pt noted: Oh good, I am hoping to be able to leave [facility] this morning. CM Discharge Assessment Start: 01/10/18 09:26 Freq: Status: Active Protocol: Document 01/10/18 09:27 ITV (Rec: 01/10/18 09:28 ITV [id number]) Discharge Planning Assessment Advance Directives? Yes History Provided By Patient Prior Living Arrangements House Independent with ADL's Yes Is patient alert and oriented? Yes Whiteboard Updated in Patient Room with Yes name and ext. 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
--- NOTE | 2018-01-10 10:05 | PC.NURSE ---
Obtained sputum sample, sent to lab. 0945
--- NOTE | 2018-01-10 14:19 | PC.NURSE ---
1400 CT w/contrast completed. Pt resting in bed at this time.
--- NOTE | 2018-01-10 15:51 | P.DS_ITS ---
History of Present Illness Date Patient Seen: 01/10/18 Time Patient Seen: 15:50 Chief complaint: COUGH FEVER NOT WELL Narrative: History of present illness Patient is a pleasant 72 years of age female who notes sudden onset of fevers and chills nausea and chest discomfort over the past 1 week. Patient notes prior history of pneumonia about 2 years ago. Interestingly, patient notes her father has history of lung cancer with multiple admissions for pneumonia. Patient also has a sister with history of lung cancer as well. Patient as well as notes by the ER staff was that patient had a fairly obvious productive cough in the ER initially. Chest x-ray was negative for pneumonia process. Increased vascular congestion was noted. Patient notes on further questioning that she was preferring not to be admitted. This option was not discussed with patient. Patient was admitted overnight and placed to the floor with holding orders by the ER physician. Discharge Providers Date of admission: 01/10/18 01:01 Primary care physician: CARTER Mathur Consults: 01/09/18 20:26 Consult to Respiratory Therapy Evaluate & Treat Comment: Physician Instructions: Evaluate and treat 01/10/18 07:50 Consult to Respiratory Therapy NOW Comment: check for supplemental Oxygen needs during walk Physician Instructions: Evaluate and treat Discharge provider: Dangelo Manzanares MD Summary Discharge Diagnosis: Right basilar pneumonia Pneumonia noted on CT of the chest and abdomen earlier today Will continue the Levaquin antibiotic for an additional 8 days after discharge today. This will provide a total course of 10 days to treat Curb 65 score of 1 out of 5 due to her age of 72 years of age. No significant comorbidities in her history. Usual criteria to consider for discharge to home with outpatient treatment for patients with a score of 0-1 out of 5 points possible on the curb 65 score. Patient appropriate for discharge Hypertension history Continue blood pressure as taken prior to admission Hypothyroidism Continue Synthroid as taken prior to admission Hospital Course: Patient was admitted to the hospital for further treatment of undefined symptoms suggestive of a respiratory infection. The chest x-ray initially was negative. In view of patient having lung malignancy in first- degree relative patient had CT of the chest with IV contrast. A community- acquired pneumonia was identified. Radiologist recommended follow-up imaging to ensure complete resolution in this region. A underlying lesion could certainly exist in the setting of this infiltrate with pneumonia. Patient had a curb 65 score of 1 out of 5 points possible. Normally a patient with a score of 0-1 could be considered for discharge to home setting and outpatient antibiotic provided. Patient has been ambulating in the hallway without any difficulty at room air. She notes a remarkable improvement since she was admitted regarding her symptoms. She feels somewhat better and is anxious for discharge will proceed to do so. Status at Discharge Cognitive/behavioral status at discharge: Awake and alert with good cognitive function no apparent distress anxious for discharge patient's daughter as well as her at bedside Functional status at discharge: independent ambulation Time Spent with Patient Greater than 30 minutes (25 min discharge) Exam Vital Signs (past 8 hours): - 01/10/18 11:45 Temperature 98.3 F Pulse Rate 81 Respiratory Rate 18 Blood Pressure 130/80 Pulse Oximetry 99 Oxygen Delivery Method Room Air Narrative Exam Narrative: General appearance patient is awake alert no apparent distress Psychiatric well oriented to time place person Respiratory fairly clear to auscultation with good airflow no wheezes crackles Cardiovascular regular rate rhythm no murmurs noted GI is benign soft nontender Neurologic no focal neurologic changes cranial nerves 2-12 grossly intact Objective Labs Result Diagrams: 01/09/18 21:15 01/09/18 22:05 Labs: Laboratory Results - last 24 hr 01/09/18 01/09/18 01/09/18 20:55 21:10 21:15 WBC 11.1 H RBC 4.53 Hgb 14.1 Hct 41.8 MCV 92.2 MCH 31.2 MCHC 33.9 RDW 12.6 Plt Count 197 Neut % (Auto) 91.1 H Lymph % (Auto) 5.3 L [place] % (Auto) 2.8 L Eos % (Auto) 0.7 L Baso % (Auto) 0.1 Neut # (Auto) 28219 H PT INR APTT Sodium Potassium Chloride Carbon Dioxide BUN Creatinine Estimated GFR BUN/Creatinine Ratio Glucose Lactate Calcium Total Bilirubin AST ALT Alkaline Phosphatase Total Creatine Kinase CK-MB (CK-2) CK-MB (CK-2) Rel Index Troponin I B-Natriuretic Peptide 39.8 Total Protein Albumin Globulin Albumin/Globulin Ratio Lipase Procalcitonin Urine RBC Urine WBC Ur Squamous Epith Cells Urine Bacteria Ur Culture Indicated? Micro UA Comment Influenza A & B (PCR) Negative 01/09/18 01/09/18 01/09/18 21:15 21:15 21:15 WBC RBC Hgb Hct MCV MCH MCHC RDW Plt Count Neut % (Auto) Lymph % (Auto) [place] % (Auto) Eos % (Auto) Baso % (Auto) Neut # (Auto) PT 11.3 INR 1.0 APTT 33 Sodium Potassium Chloride Carbon Dioxide BUN Creatinine Estimated GFR BUN/Creatinine Ratio Glucose Lactate 1.6 Calcium Total Bilirubin AST ALT Alkaline Phosphatase Total Creatine Kinase 84 CK-MB (CK-2) TNP CK-MB (CK-2) Rel Index TNP Troponin I < 0.012 B-Natriuretic Peptide Total Protein Albumin Globulin Albumin/Globulin Ratio Lipase Procalcitonin Urine RBC Urine WBC Ur Squamous Epith Cells Urine Bacteria Ur Culture Indicated? Micro UA Comment Influenza A & B (PCR) 01/09/18 01/09/18 01/09/18 21:15 22:05 22:05 WBC RBC Hgb Hct MCV MCH MCHC RDW Plt Count Neut % (Auto) Lymph % (Auto) [place] % (Auto) Eos % (Auto) Baso % (Auto) Neut # (Auto) PT INR APTT Sodium 138 Potassium 3.6 Chloride 100 Carbon Dioxide 27 BUN 17 Creatinine 0.80 Estimated GFR > 60.0 BUN/Creatinine Ratio 21.3 Glucose 116 H Lactate Calcium 8.7 Total Bilirubin 0.4 AST 41 H ALT 31 Alkaline Phosphatase 100 Total Creatine Kinase CK-MB (CK-2) CK-MB (CK-2) Rel Index Troponin I B-Natriuretic Peptide Total Protein 6.8 Albumin 4.1 Globulin 2.7 Albumin/Globulin Ratio 1.5 Lipase 72 Procalcitonin < 0.05 Urine RBC Urine WBC Ur Squamous Epith Cells Urine Bacteria Ur Culture Indicated? Micro UA Comment Influenza A & B (PCR) 01/09/18 23:19 WBC RBC Hgb Hct MCV MCH MCHC RDW Plt Count Neut % (Auto) Lymph % (Auto) [place] % (Auto) Eos % (Auto) Baso % (Auto) Neut # (Auto) PT INR APTT Sodium Potassium Chloride Carbon Dioxide BUN Creatinine Estimated GFR BUN/Creatinine Ratio Glucose Lactate Calcium Total Bilirubin AST ALT Alkaline Phosphatase Total Creatine Kinase CK-MB (CK-2) CK-MB (CK-2) Rel Index Troponin I B-Natriuretic Peptide Total Protein Albumin Globulin Albumin/Globulin Ratio Lipase Procalcitonin Urine RBC 0-1/hpf Urine WBC 0-1/hpf Ur Squamous Epith Cells 0-1 /hpf Urine Bacteria Occasional (0-1) Ur Culture Indicated? Cult not indicated Micro UA Comment Not Reportable Influenza A & B (PCR) Discharge Plan Discharge Plan Patient Disposition: Home Discharge Med Rec/Prescriptions Prescriptions: New levofloxacin 250 mg Tablet 750 mg PO 2100 Qty: 8 RF: 0 Continue estradiol [Vagifem] 10 mcg tablet 10 mcg VAG 2XW Qty: 8 RF: 11 estradiol [Vivelle-Dot] 0.025 mg/24 hr patch semiweekly 1 patch Transdermal 2XW Qty: 8 RF: 11 estradiol [Estrace] 0.01 % (0.1 mg/gram) cream 1 gram VAG 2XW Qty: 42.5 RF: 6 progesterone micronized [Prometrium] 100 mg capsule 100 mg PO QAM 30 Days Qty: 30 RF: 11 bupropion HCl [Wellbutrin SR] 100 mg tablet extended release 12 hr 100 mg PO BID RF: 0 losartan 25 mg tablet 25 mg PO DAILY RF: 0 levothyroxine 25 mcg capsule 25 mcg PO DAILY RF: 0 Discharge Data Primary Care Provider: Nae Rajan Attending Provider: Gabriel Boyer Admit Date/Time: 01/10/18 01:01
--- NOTE | 2018-01-10 16:30 | CM.DANOTE ---
Pt Iv discontinued, tele removed. 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 all questions answered, follow up appointments discussed. information given about new prescription.
== END 2018-01-10 16:30 | disposition home or self-care (01) ==
LOC: ED 01-10 00:31 → AC 01-10 01:01
PROVIDERS: Admitting Provider Internal Medicine; Emergency Provider Emergency Medicine; Family Provider Nurse Practitioner; PCP Nurse Practitioner; Visit Provider Internal Medicine
DX: J18.9 Pneumonia, unspecified organism (principal); R06.02 Shortness of breath; E03.9 Hypothyroidism, unspecified; I10 Essential (primary) hypertension
CPT/HCPCS: 36415; 71046; 71260; 74019; 74177; 80053; 81003; 81015; 82550; 83605; 83690; 83880; 84145; 84484; 85025; 85610; 85730; 87040; 87400; 93005; 96361; 96365; 96366; 99285; G0378; J1956; Q9967

== ENCOUNTER → 2018-03-13 09:34 | Outpatient (CLI) | payer BC, SELFPAY ==
[2018-01-10 01:03] VITALS: BMI 29.9
--- NOTE | 2018-03-13 | DI.RAD.S_ITS ---
PROCEDURE: FL UPPER GI W AIR INDICATIONS: LAP HIATAL HERNIA REPAIR WITH YELENA COMPARISON: None. FINDINGS: KUB: Preprocedural grinder watch parts film demonstrates a normal bowel gas pattern. No suspicious abdominal calcifications. Visualized solid organ contours appear normal. Bony structures appear unremarkable. Esophagus: Patient is status post prior Yelena fundoplication. Esophageal mucosa is normal on air-contrast views. On single-contrast views, there is normal esophageal peristalsis. No strictures, extrinsic mass effects, or diverticula. No hiatal hernia. Mild gastroesophageal reflux is seen with contrast reflux to distal one third of the esophageal lumen.. There is normal transit of a calibrated barium tablet through the esophagus. Stomach: The stomach is normally distensible, with normal rugal fold thickness. No mucosal masses or ulcers. Pylorus and duodenal bulb appear normal in morphology. Duodenal folds are normal in thickness as well. IMPRESSION: Mild gastroesophageal reflux. Prior Yelena fundoplication. No gross ulceration. No stricture or obstruction. Dictated by: Diogo Pimentel M.D. on 03/13/2018 at 11:47 Approved by: Diogo Pimentel M.D. on 03/13/2018 at 11:48
== END ==
PROVIDERS: PCP Nurse Practitioner
DX: K21.9 Gastro-esophageal reflux disease without esophagitis (principal); Z98.890 Other specified postprocedural states
CPT/HCPCS: 74247

== ENCOUNTER → 2020-05-09 11:08 | Outpatient (CLI) | payer BC, SELFPAY ==
[2018-01-10 01:03] VITALS: BMI 29.9
[2020-05-09] MEDS: COVID-19 VACC #1, MRNA(MOD) 100 MCG/0.5 ML VIAL IM (11:16)
== END ==
PROVIDERS: PCP Nurse Practitioner; Visit Provider Internal Medicine
DX: Z23 Encounter for immunization (principal)
CPT/HCPCS: 0011A; 91301

== ENCOUNTER → 2020-06-06 12:09 | Outpatient (CLI) | payer BC, SELFPAY ==
[2018-01-10 01:03] VITALS: BMI 29.9
[2020-06-06] MEDS: COVID-19 VACC #2, MRNA(MOD) 100 MCG/0.5 ML VIAL IM (12:18)
== END ==
PROVIDERS: PCP Nurse Practitioner; Visit Provider Internal Medicine
DX: Z23 Encounter for immunization (principal)
CPT/HCPCS: 0012A; 91301

== ENCOUNTER → 2020-11-10 09:47 | Outpatient (CLI) | payer BC, SELFPAY ==
[2018-01-10 01:03] VITALS: BMI 29.9
[2020-11-10 12:43] LABS: COVID19 -Nasal RAPID Negative (Negative)
== END ==
PROVIDERS: PCP Nurse Practitioner; Visit Provider Physician Assistant
DX: Z01.812 Encounter for preprocedural laboratory examination (principal); Z20.822 Contact with and (suspected) exposure to COVID-19
CPT/HCPCS: 87635

== ENCOUNTER 2020-11-12 07:33 | Day surgery (SDC) | payer BC, SELFPAY ==
[2018-01-10 01:03] VITALS: BMI 29.9
--- NOTE | 2020-11-11 19:22 | PM.PREOP ---
Pre-operative Note COVID-19 COVID-19 status: Negative Interval Note History & Physical reviewed/Exam performed by Physician: Yes Changes to H&P: No
--- NOTE | 2020-11-11 19:23 | P.OP_ITS ---
Operative Date/Time/Diagnoses Date of procedure: 11/12/20 Time of procedure: 08:45 Procedure & Clinicians Procedure: Preoperative diagnoses: 1. Right significant nuclear sclerotic and cortical cataract. 2. Desire for a multifocal implant. 3. Hypertension 4. Severe dry eye maximized with Restasis,punctal plugs and topical steroids prior to surgery. Postoperative diagnoses: 1. Cataract removed by phacoemulsification with placement of posterior chamber intraocular lens. Procedure: Phacoemulsification with posterior chamber intraocular lens implant Surgeon: Whitley Brown MD Complications: None Specimen: None Implant: [id number] Blood loss: None Anesthesia: Retrobulbar with monitored standby Description of procedure: Patient presents with a complaint of decreased vision due to cataract which is affecting activities of daily living especially glare with driving. The patient wants surgery to improve vision. She has elected a multifocal to make her as glass free as possible. She understands the extra risk of surgery during the COVID-19 epidemic and wishes to proceed. She has tested COVID virus negative within 72 hours of the procedure. The patient was taken to the operating room and given IV sedation. A retrobulbar block consisting of 6 cc of 2% xylocaine without epinephrine mixed with 1 cc of hyaluronidase added is placed between the medial and lateral 1/3 of the inferior orbital rim. The eye is manually massaged for 30 sec, prepped using Betadine solution, and draped in the usual sterile fashion. Temporal approach was made, a 1 mm side-port incision was made 90? from the proposed clear corneal incision position. Phenylephrine 1.5% mixed with 1% xylocaine 0.2 cc was placed into the anterior chamber. Viscoat followed by Teodoro was then placed. A 2.6 mm clear incision with a 2.6 mm blade was placed. A 360 degree capsulorrhexis style capsulotomy was then performed with a cystitome needle on a Healon. Hydrodelineation and hydrodissection were performed. The phacoemulsification unit is introduced, and sculpting notice used to groove the central lens. It is then removed in chopping mode. Epi nucleus is removed with epinuclear mode and irrigation aspiration was used to remove the peripheral cortex. The posterior capsule is polished. The intraocular lens is selected, inspected, power confirmed, and placed in the posterior chamber and carefully centered. The wound was stromally hydrated and tested for leaks, there was none and it was left sutureless. Vigamox 0.1 cc was placed into the anterior chamber. Kenalog 0.2 cc was placed in the superior subconjunctival space. A drop of antibiotic and was placed and the eye was patched and shielded. The patient was stable and returned to the recovery room in excellent condition. Dictated by: Whitley Brown MD Copy to: [facility] Same procedure as scheduled: Yes
[2020-11-12] MEDS: PROPARACAINE 0.5% OPHTH SOL 2 DROPS EYE-OP (07:55)
[2020-11-12] MEDS: CATARACT EYE COMPOUND (10 DROPS/SYRINGE) 3 DROPS EYE-OP (08:00)
[2020-11-12 08:01] VITALS: BP 125/75; PULSE 72; RESP 12; TEMP 37.2; O2SAT 97; BMI 28.2
[2020-11-12] MEDS: ERYTHROMYCIN OPHTH 1 GM OINT 1 APPLIC EYE-RIGHT (09:04)
[2020-11-12] MEDS: CHONDROIDTIN/SOD HYALURONATE 1.05 ML SYRINGE INTRAOCULA (09:04)
[2020-11-12] MEDS: TRIAMCINOLONE 50 MG/5 ML VIAL INJ (09:04)
[2020-11-12] MEDS: MOXIFLOXACIN INJ 4 MG/0.8 ML VIAL 0.5 MG EYE-OP (09:05)
[2020-11-12] MEDS: BALANCED SALT IRRIG SOLN NO.2 500 ML, EPINEPHrine 1 MG IRR (09:05)
[2020-11-12] MEDS: HYALURONATE SODIUM 10 MG/ML SYRINGE INJ (09:05)
[2020-11-12] MEDS: PHENYLEPHRINE/LIDOCAINE VIAL (OR) 0.2 ML EYE-OP (09:05)
[2020-11-12] MEDS: LIDOCAINE 2% 4 ML, BUPIVACAINE 0.5% (PF) 4 ML, HYALURONIDASE 150 UNIT INJ (09:06)
[2020-11-12 09:37] VITALS: BP 142/85; PULSE 78; RESP 16; TEMP 36.8; O2SAT 100
--- NOTE | 2020-11-12 10:04 | SUR.OPER ---
LATE ENTRY for during cataract procedure Supine on eye stretcher, head on extension cradle secured with tape. Arms tucked at sides with blanket. Pillow under knees.
== END 2020-11-12 09:47 | disposition home or self-care (01) ==
LOC: OR 07:39
PROVIDERS: PCP Nurse Practitioner; Referring Provider Ophthalmology; Visit Provider Ophthalmology
PROC: (CPT 66984; principal; 2020-11-12 08:45)
DX: H25.811 Combined forms of age-related cataract, right eye (principal); H04.129 Dry eye syndrome of unspecified lacrimal gland; I10 Essential (primary) hypertension
CPT/HCPCS: 66984; J0171; J2250; J2704; J3010; J3301; J3470; V2788

== ENCOUNTER 2020-11-26 07:09 | Day surgery (SDC) | payer BC, SELFPAY ==
[2018-01-10 01:03] VITALS: BMI 29.9
--- NOTE | 2020-11-24 17:19 | PM.PREOP ---
Pre-operative Note COVID-19 COVID-19 status: Negative Interval Note History & Physical reviewed/Exam performed by Physician: Yes Changes to H&P: No
--- NOTE | 2020-11-24 17:21 | P.OP_ITS ---
Operative Date/Time/Diagnoses Date of procedure: 11/26/20 Time of procedure: 09:45 Procedure & Clinicians Procedure: Preoperative diagnoses: 1. Left sigificant nuclear sclerotic and cortical cataract. 2. Desire for a multifocal Panoptic lens for increased range of vision. 3. Cured toe conjunctivitis sicca pretreated prior to surgery. Has punctal plugs and is on Restasis. 4. Hypothyroidism 5. Hypertension Postoperative diagnoses: 1. Cataract removed by phacoemulsification with placement of posterior chamber intraocular lens. Procedure: Phacoemulsification with posterior chamber intraocular lens implant Surgeon: Whitley Brown MD Complications: None Specimen: None Implant: TFATOO+20.0 Blood loss: None Anesthesia: Retrobulbar with monitored standby Description of procedure: Patient presents with a complaint of decreased vision due to cataract which is affecting activities of daily living at distance and near. She has been treated preoperatively for extensive dry eye and is now stable. Multiple preoperative measurements were done and she has selected a Panoptix lens The patient wants surgery to improve vision. She understands the extra risk of surgery during the COVID-19 epidemic and wishes to proceed. She has undergone successful surgery in her right eye 2 weeks ago. The patient was taken to the operating room and given IV sedation. A retrobulbar block consisting of 6 cc of 2% xylocaine without epinephrine mixed half and half with 0.5% Marcaine with 1 cc of hyaluronidase added is placed between the medial and lateral 1/3 of the inferior orbital rim. The eye is manually massaged for 30 sec, prepped using Betadine solution, and draped in the usual sterile fashion. Temporal approach was made, a 1 mm side-port incision was made 90? from the proposed clear corneal incision position. Phenylephrine 1.5% mixed with 1% xylocaine 0.2 cc was placed into the anterior chamber. Endcoat followed by Teodoro was then placed. A 2.6 mm clear incision with a 2.6 mm blade was placed. A 360 degree capsulorrhexis style capsulotomy was then performed with a cystitome needle on a Healon. Hydrodelineation and hydrodissection were performed. The phacoemulsification unit is introduced, and sculpting notice used to groove the central lens. It is then removed in chopping mode. Epi nucleus is removed with epinuclear mode and irrigation aspiration was used to remove the peripheral cortex. The posterior capsule is polished. The intraocular lens is selected, inspected, power confirmed, and placed in the posterior chamber. The wound was stromally hydrated and tested for leaks, there was none and it was left sutureless. Vigamox 0.1 cc was placed into the anterior chamber. Kenalog 0.2 cc was placed in the superior subconjunctival space. A drop of antibiotic and was placed and the eye was patched and shielded. The patient was stable and returned to the recovery room in excellent condition. Dictated by: Whitley Brown MD Copy to: [facility] Same procedure as scheduled: Yes
[2020-11-26 08:21] LABS: COVID19 -Nasal RAPID Negative (Negative)
[2020-11-26] MEDS: PROPARACAINE 0.5% OPHTH SOL 2 DROPS EYE-OP ×2 (08:34→08:42)
[2020-11-26] MEDS: CATARACT EYE COMPOUND (10 DROPS/SYRINGE) 3 DROPS EYE-OP (08:43)
[2020-11-26 08:48] VITALS: BP 134/69; PULSE 59; RESP 16; TEMP 36.7; O2SAT 100; BMI 29.0
--- NOTE | 2020-11-26 09:26 | SUR.OPER ---
Supine on eye stretcher, head on extension cradle secured with tape. Arms tucked at sides with blanket. Pillow under knees.
[2020-11-26] MEDS: BALANCED SALT IRRIG SOLN NO.2 500 ML, EPINEPHrine 1 MG IRR (10:23)
[2020-11-26] MEDS: TRIAMCINOLONE 50 MG/5 ML VIAL INJ (10:24)
[2020-11-26] MEDS: MOXIFLOXACIN INJ 4 MG/0.8 ML VIAL 0.5 MG EYE-OP (10:25)
[2020-11-26] MEDS: PHENYLEPHRINE/LIDOCAINE VIAL (OR) 0.2 ML EYE-OP (10:25)
[2020-11-26] MEDS: LIDOCAINE 2% 4 ML, BUPIVACAINE 0.5% (PF) 4 ML, HYALURONIDASE 150 UNIT INJ (10:26)
[2020-11-26] MEDS: ERYTHROMYCIN OPHTH 1 GM OINT 1 APPLIC EYE-LEFT (10:27)
[2020-11-26] MEDS: HYALURONATE SODIUM 30 MG-10 MG/ML SYRINGES 1 BOX INTRAOCULA (10:28)
[2020-11-26 10:52] VITALS: BP 138/75; PULSE 61; RESP 18; TEMP 36.8; O2SAT 100
== END 2020-11-26 11:04 | disposition home or self-care (01) ==
PROVIDERS: PCP Nurse Practitioner; Referring Provider Ophthalmology; Visit Provider Ophthalmology
PROC: (CPT 66984; principal; 2020-11-26 09:45)
DX: H25.812 Combined forms of age-related cataract, left eye (principal); Z20.822 Contact with and (suspected) exposure to COVID-19; E03.9 Hypothyroidism, unspecified; I10 Essential (primary) hypertension
CPT/HCPCS: 66984; 87635; J0171; J2250; J2704; J3010; J3301; J3470; V2788

== ENCOUNTER → 2020-12-17 12:03 | Outpatient (CLI) | payer BC, SELFPAY ==
[2018-01-10 01:03] VITALS: BMI 29.9
--- NOTE | 2020-12-17 12:03 | DI.US.S_ITS ---
PROCEDURE: US PELVIC COMPLETE INDICATIONS: POST MENOPAUSAL BLEEDING TECHNIQUE: Real-time scanning was performed of the pelvic organs, with image documentation. Additional endovaginal scanning was necessary due to incomplete visualization of the adnexal and endometrial structures by transabdominal scanning. COMPARISON: [facility], US, US PELVIC COMPLETE, 06/09/2020, 11:49. FINDINGS: Uterus: Uterus is normal in size at 5.1 x 3.4 x 5.3 cm. The endometrium measures 4.8 mm in combined thickness. Ovaries: Not visualized, possibly secondary to involutional change. Other: No pathologic free abdominal or pelvic fluid. IMPRESSION: 1. Endometrial thickness is 4.8 mm, just below the threshold value for abnormal endometrial thickening in a patient with postmenopausal bleeding. 2. Otherwise unremarkable pelvic ultrasound. Dictated by: Brian Whitehead M.D. on 12/17/2020 at 14:20 Approved by: Brian Whitehead M.D. on 12/17/2020 at 14:24
== END ==
PROVIDERS: PCP Nurse Practitioner; Referring Provider Obstetrics & Gynecology; Visit Provider Obstetrics & Gynecology
DX: N95.0 Postmenopausal bleeding (principal)
CPT/HCPCS: 76856

== ENCOUNTER → 2022-01-02 08:35 | Outpatient (CLI) | payer BC, SELFPAY ==
[2018-01-10 01:03] VITALS: BMI 29.9
[2022-01-02 09:57] LABS: BUN Creatinine Ratio 26.7 (6-22); Blood Urea Nitrogen 20 mg/dL (7-17); Calcium 8.7 mg/dL (8.4-10.2); Carbon Dioxide 26 mmol/L (22-32); Chloride 102 mmol/L (98-107); Estimated Glomerular Filt Rate > 60 mL/min (>60); Glucose 95 mg/dL (80-110); HEMOLYSIS < 15 (0-50); Potassium 4.3 mmol/L (3.4-5.1); Sodium 137 mmol/L (137-145)
== END ==
PROVIDERS: PCP Nurse Practitioner; Referring Provider Nurse Practitioner; Visit Provider Nurse Practitioner
DX: I10 Essential (primary) hypertension (principal)
CPT/HCPCS: 36415; 80048

== ENCOUNTER → 2022-01-15 11:37 | Outpatient (CLI) | payer BC, SELFPAY ==
[2018-01-10 01:03] VITALS: BMI 29.9
== END ==
PROVIDERS: PCP Nurse Practitioner; Referring Provider Nurse Practitioner; Visit Provider Nurse Practitioner
DX: Z13.820 Encounter for screening for osteoporosis (principal); Z78.0 Asymptomatic menopausal state; M85.851 Other specified disorders of bone density and structure, right thigh; Z79.890 Hormone replacement therapy
CPT/HCPCS: 77080

== ENCOUNTER → 2022-07-22 08:12 | Outpatient (CLI) | payer BC, SELFPAY ==
[2018-01-10 01:03] VITALS: BMI 29.9
--- NOTE | 2022-07-22 | DI.ECHO.S_ITS ---
[facility] +---------+ : : [address] : : : : [id number] : : : : Phone: [phone]+ Echocardiogram Report + + :Name: AGUILA VALLEJO Study Date: 07/22/2022 Height: 66 in : :[facility] ReadingLocation: Weight: 188 lb : : Gender: Female BSA: 1.9 m2 : :: 1945 Age: 76 yrs BP: 126/74 mmHg: :Reason For Study: LEFT BUNDLE BRANCH BLOCK HR: 82 : :Ordering Physician: ATUL, : :LISA Performed By: MARINE CUEVAS : :Referring: LISA BRAUN : + + Interpretation Summary 1) Normal left ventricular thickness and size with low normal systolic function (EF 50-55%). 2) Normal right ventricular size and function. 3) No significant valvular abnormalities. 4) No prior Echo available for comparison. Procedure: A two-dimensional transthoracic echocardiogram with color flow and Doppler was performed. The study quality was technically adequate. There is no prior echocardiogram noted for this patient. The patient was in normal sinus rhythm during the exam. Left Ventricle: The left ventricle is normal in size. Left ventricular wall thickness is at the upper limits of normal. The ejection fraction is estimated to be 50-55%. Left ventricular systolic function is low normal. Septal motion is consistent with conduction abnormality. Right Ventricle: The right ventricle is normal in size and function. Atria: The left atrial size is normal. The right atrium is mildly dilated. There is no Doppler evidence for an interatrial shunt. Mitral Valve: The mitral valve is normal in structure and function. There is no mitral regurgitation noted. Aortic Valve: The aortic valve is trileaflet. The aortic valve opens well. There is no aortic valve stenosis. No aortic regurgitation is present. Tricuspid Valve: The tricuspid valve is normal in structure and function. There is mild tricuspid regurgitation. The right ventricular systolic pressure is estimated to be at least 20 mmHg based on an estimated right atrial pressure of 3 mm Hg. Pulmonic Valve: The pulmonic valve leaflets are thin and pliable; valve motion is normal. There is mild pulmonic regurgitation. Great Vessels: The aortic root is normal size. The ascending aorta is normal in size. The IVC is of normal diameter and collapses greater than 50% with a sniff. This suggests a low right atrial pressure of 3 mm Hg. Pericardium/ Pleura There is no pericardial effusion. There is no pleural effusion. MMode/2D Measurements & Calculations LVIDd: 4.4 cm LVOT diam: 2.2 cm LVIDs: 3.4 cm Ao root diam: 3.2 cm FS: 23.5 % asc Aorta Diam: 3.1 cm IVSd: 1.1 cm Ao Arch Diam (Prox Trans): 2.3 cm LVPWd: 0.97 cm LV cortes. diameter/BSA (cm/m^2): 2.3 LV sys. diameter/BSA (cm/m^2): 1.7 LA A2 area: 20.2 cm2 RA long axis: 4.6 cm LA A4 area: 17.6 cm2 RA area: 16.3 cm2 LA length (vol): 4.4 cm RA vol: 48.9 ml LA vol: 68.0 ml RA : 25.1 ml/m2 LA vol index: 34.9 ml/m2 IVC diam: 1.0 cm TAPSE: 2.1 cm Doppler Measurements & Calculations Ao V2 max: 135.8 cm/sec LVOT Max Venkata: 89.7 cm/sec Ao V2 mean: 102.9 cm/sec LV V1 max P.2 mmHg Ao max P.4 mmHg LV V1 VTI: 20.3 cm Ao mean P.5 mmHg GURU(I,D): 3.0 cm2 Ao V2 VTI: 25.5 cm GURU(V,D): 2.5 cm2 sev ratio: 0.80 GURU indexed to BSA (cm^2/m^2): 1.5 MV E max venkata: 69.4 cm/sec TR max venkata: 203.3 cm/sec MV A max venkata: 97.1 cm/sec TR max P.5 mmHg MV E/A: 0.71 PA V2 max: 88.3 cm/sec Med Peak E' Venkata: 4.4 cm/sec PA V2 mean: 60.7 cm/sec E/E' med: 15.8 PA mean P.6 mmHg Lat Peak E' Venkata: 8.0 cm/sec PA pr(Accel): 19.1 mmHg E/E' lat: 8.7 E/e' average: 12.3 MV dec time: 0.24 sec SV(LVOT): 75.8 ml Reading Physician:05:00 PM
[2022-07-22 11:48] LABS: BUN Creatinine Ratio 21.1 (6-22); Blood Urea Nitrogen 19 mg/dL (7-17); Calcium 9.6 mg/dL (8.4-10.2); Carbon Dioxide 32 mmol/L (22-32); Chloride 101 mmol/L (98-107); Estimated Glomerular Filt Rate > 60 mL/min (>60); Glucose 92 mg/dL (80-110); HEMOLYSIS < 15 (0-50); Potassium 4.9 mmol/L (3.4-5.1); Sodium 137 mmol/L (137-145)
[2022-07-22 12:08] LABS: Thyroid Stimulating Hormone 1.17 uIU/mL (0.47-4.68)
== END ==
PROVIDERS: PCP Nurse Practitioner; Referring Provider Internal Medicine Cardiovascular Disease; Visit Provider Internal Medicine Cardiovascular Disease
DX: I37.1 Nonrheumatic pulmonary valve insufficiency (principal); I44.7 Left bundle-branch block, unspecified; I10 Essential (primary) hypertension; I07.1 Rheumatic tricuspid insufficiency; E03.9 Hypothyroidism, unspecified
CPT/HCPCS: 36415; 80048; 84443; 93306

== ENCOUNTER → 2022-07-27 07:27 | Outpatient (CLI) | payer BC, SELFPAY ==
[2018-01-10 01:03] VITALS: BMI 29.9
[2022-07-27 10:01] LABS: Cholesterol 205 mg/dL (140-199); HDL Cholesterol 92 mg/dL (40-60); LDL Cholesterol Calculated 102 mg/dL (<100); Triglycerides 57 mg/dL (35-150)
== END ==
PROVIDERS: PCP Nurse Practitioner; Referring Provider Internal Medicine Cardiovascular Disease; Visit Provider Internal Medicine Cardiovascular Disease
DX: I10 Essential (primary) hypertension (principal)
CPT/HCPCS: 36415; 80061

== ENCOUNTER → 2022-07-29 12:05 | Outpatient (CLI) | payer BC, SELFPAY ==
[2018-01-10 01:03] VITALS: BMI 29.9
--- NOTE | 2022-07-30 18:46 | DI.NM.S_ITS ---
DATE OF SERVICE: 07/29/2022 PROCEDURE: Pharmacologic vasodilator stress and rest myocardial perfusion imaging with gating to assess ejection fraction and regional wall motion. ORDERING PROVIDER: Meryl Braun MD INDICATIONS: The patient is a 76-year-old female with recently discovered LBBB. This study is performed to evaluate for her conduction abnormality. CARDIAC STRESS: Per protocol, 0.4 mg of regadenoson was infused with a normal hemodynamic response. She had no chest discomfort or other anginal symptoms. Her resting ECG showed sinus rhythm with a left anterior fascicular block. There were no significant ST-segment shifts or arrhythmias with pharmacologic stress. Per protocol, 27.0 millicuries of technetium-99m Myoview was injected and she was imaged 20 minutes later using a gated SPECT acquisition protocol. The following day, she returned and was reinjected with an additional 25.3 millicurie of technetium-99m Myoview while at rest and was imaged 20 minutes later, again using a gated SPECT acquisition protocol. FINDINGS: 1. Raw data. There is fairly good myocardial tracer uptake. Lung/heart ratio is normal at 0.19 with a normal TID ratio of 0.85. 2. Quantitated gated SPECT: Post-stress ejection fraction is estimated at 70% without any focal wall motion abnormality and specifically the apex appears to have normal contractility. The resting ejection fraction is 66% with a slightly increased end-diastolic volume of 136 mL. 3. Myocardial perfusion imaging: Post-stress supine images show a fairly normal myocardial perfusion pattern with a very subtle small defect at the apex that essentially resolves on prone imaging. There are no other perfusion defects. The resting images show a similar perfusion pattern. IMPRESSION: 1. Normal myocardial perfusion study. 2. Small, subtle fixed apical defect that resolves on prone imaging. There is no compelling evidence for myocardial ischemia or previous myocardial infarction. 3. Normal left ventricular systolic function without any focal wall motion abnormality. Left ventricular volumes are mildly increased. 4. No angina or ECG evidence of ischemia with pharmacologic vasodilator stress. Richa Valenzuela - BEATRIZ/jayne/josette doc#: [id number]/job#: [id number] dd: 07/30/2022 12:49:00 dt: 07/30/2022 18:29:00 DICTATING MD/COPIES TO: Aurelio Magallon MD; Meryl Braun MD COPIES MNE: MELODY;
== END ==
PROVIDERS: PCP Nurse Practitioner; Referring Provider Internal Medicine Cardiovascular Disease; Visit Provider Internal Medicine Cardiovascular Disease
DX: I44.7 Left bundle-branch block, unspecified (principal)
CPT/HCPCS: 78452; 93017; A9502; J2785

== ENCOUNTER 2022-07-30 22:26 | Emergency (ER) | payer BC, SELFPAY ==
[2018-01-10 01:03] VITALS: BMI 29.9
[2022-07-30 22:31] VITALS: BP 160/76; PULSE 87; RESP 18; TEMP 36.9; O2SAT 98; BMI 29.8
[2022-07-30 23:27] VITALS: BP 129/63
[2022-07-30 23:30] VITALS: BP 113/58
--- NOTE | 2022-07-30 23:36 | ED.RECABL ---
HPI - Recheck/Abnormal Lab/Rx General Chief Complaint: Recheck/Abnormal Lab/Rx Stated Complaint: Took double dose of blood pressure meds Time Seen by Provider: 07/30/22 22:36 Source: patient Mode of arrival: Ambulatory History of Present Illness HPI narrative: Patient is a 76-year-old female who instead of taking 1.5 tablets of her night blood pressure medication she took 3 tablets. This was an inadvertent medical air. She took these medicines approximately 1.5 hours prior to arrival here in the emergency department. He any ER patient has no specific symptoms. No concern about taking extra of any of her other medicines. Related Data Home Medications Medication Instructions Recorded Confirmed bupropion HCl 100 mg tablet,12 hr 100 mg PO DAILY 09/20/17 07/09/22 sustained-release (Wellbutrin SR) levothyroxine 25 mcg capsule 25 mcg PO DAILY 09/20/17 07/09/22 losartan 25 mg tablet 25 mg PO DAILY 09/20/17 07/09/22 progesterone micronized 200 mg 100 mg PO BEDTIME 07/09/22 capsule (Prometrium) Previous Rx's Medication Instructions Recorded estradiol 0.025 mg/24 hr See Rx Instructions .Route 05/03/22 semiweekly transdermal patch .COMPLEX #8 patches (Emerald) estradiol 10 mcg vaginal tablet See Rx Instructions .Route 05/03/22 (Vagifem) .COMPLEX #24 tabs Allergies Allergy/AdvReac Type Severity Reaction Status Date / Time No Known Drug Allergies Allergy Verified 07/09/22 10:21 Review of Systems Constitutional Constitutional: Reports system reviewed and no additional complaints, except as documented Cardiovascular Cardiovascular: Reports system reviewed and no additional complaints, except as documented Respiratory Respiratory: Reports system reviewed and no additional complaints, except as documented Gastrointestinal Gastrointestinal: Reports system reviewed and no additional complaints, except as documented Patient History Medical History Atrophic vulvovaginitis Hypertension Hypothyroid Surgical History (Updated 05/15/20 @ 08:49 by [employer]) H/O thyroidectomy Social History marital status: household members: spouse Smoking Status: Never smoker alcohol intake: current Smoking Status: Never smoker alcohol intake frequency: a few times a week Substance Use Type: does not use Exam Initial Vital Signs Initial Vital Signs: Vital Signs Temperature 98.4 F 07/30/22 22:31 Pulse Rate 87 07/30/22 22:31 Respiratory Rate 18 07/30/22 22:31 Blood Pressure 160/76 H 07/30/22 22:31 Pulse Oximetry 98 07/30/22 22:31 Oxygen Delivery Method Room Air 07/30/22 22:31 Const General: cooperative and healthy appearing Resp Effort & Inspection: normal respiratory effort Cardio Rate: regular rate Neuro General: patient alert, patient awake and moves all extremities Extrem General: normal to inspection and capillary refill normal Course Vital Signs Vital signs: Vital Signs - 8 hr 07/30/22 22:31 07/30/22 23:27 07/30/22 23:30 Temperature 98.4 F Pulse Rate 87 Respiratory Rate 18 Blood Pressure 160/76 H 129/63 113/58 L Pulse Oximetry 98 Oxygen Delivery Method Room Air MDM - Recheck/Abnormal Lab/Rx MDM Narrative Medical decision making narrative: Patient was observed for period of time without any symptomatic hypotensive episodes. She has been able to ambulate without any issue. No indication for admission to the hospital. Will discharge patient home with return precautions. Discharge Plan Departure Patient Disposition: Home Clinical Impression: Accidental medication overdose Instructions: DI for Safely Taking and Storing Medications -- Adults Activity Restrictions/Additional Instructions: You have no restrictions on your activities. You can return to taking all of your medications as directed. Return to the emergency department for new or worsening symptoms. Prescriptions: No Action estradiol [Emerald] 0.025 mg/24 hr patch semiweekly See Rx Instructions .ROUTE .COMPLEX Qty: 8 11RF Dose Instruction: apply 1 patch two times a week REMOVING OLD PATCH ALTERNATE SITES Rx Instructions: apply 1 patch two times a week REMOVING OLD PATCH ALTERNATE SITES estradiol [Vagifem] 10 mcg tablet See Rx Instructions .ROUTE .COMPLEX Qty: 24 3RF Dose Instruction: INSERT 1 TABLET VAGINALLY TWO TIMES PER WEEK Rx Instructions: INSERT 1 TABLET VAGINALLY TWO TIMES PER WEEK bupropion HCl [Wellbutrin SR] 100 mg tablet extended release 12 hr 100 mg PO DAILY losartan 25 mg tablet 25 mg PO DAILY levothyroxine 25 mcg capsule 25 mcg PO DAILY progesterone micronized [Prometrium] 200 mg capsule 100 mg PO BEDTIME Referrals: Nae Rajan ARNP [Primary Care Provider] - Stand Alone Forms: Patient Portal/API
[2022-07-31 00:16] VITALS: BP 131/60
[2022-07-31 00:30] VITALS: BP 121/60
[2022-07-31 00:45] VITALS: BP 121/60; PULSE 78; RESP 16; TEMP 36.4; O2SAT 99
== END 2022-07-31 00:46 | disposition home or self-care (01) ==
PROVIDERS: Emergency Provider Emergency Medicine; PCP Nurse Practitioner
DX: T50.901A Poisoning by unspecified drugs, medicaments and biological substances, accidental (unintentional), initial encounter (principal)
CPT/HCPCS: 99281

== ENCOUNTER → 2022-08-27 15:45 | Outpatient (CLI) | payer MEDICARE, OTHER, SELFPAY ==
[2018-01-10 01:03] VITALS: BMI 29.9
--- NOTE | 2022-08-27 15:50 | DI.RAD.S_ITS ---
PROCEDURE: XR CHEST 2V INDICATIONS: Cough TECHNIQUE: 2 views of the chest were acquired. COMPARISON: [facility], CR, XR CHEST 2V, 01/09/2018, 20:02. FINDINGS: Surgical changes and devices: None. Lungs and pleura: Lungs are clear. No pleural effusions or pneumothorax. Mediastinum: Mediastinal contours are normal. Heart size is normal. Bones and chest wall: No suspicious bony abnormalities. Soft tissues appear unremarkable. IMPRESSION: Normal for age, source of current cough symptoms is not seen. Dictated by: Jewel Cast M.D. on 08/27/2022 at 16:34 Approved by: Jewel Cast M.D. on 08/27/2022 at 16:34
[2022-08-27 17:56] LABS: Influenza A - CEPHEID Flu A NEGATIVE (NEGATIVE); Influenza B - CEPHEID Flu B NEGATIVE (NEGATIVE); Respiratory Syncytial Virus Negative (Negative)
[2022-08-27 18:18] LABS: COVID-19 CEPHEID 4-PLEX PCR Negative (Negative)
== END ==
PROVIDERS: PCP Nurse Practitioner; Referring Provider Nurse Practitioner Family; Visit Provider Nurse Practitioner Family
DX: J06.9 Acute upper respiratory infection, unspecified (principal); R05.9 Cough, unspecified; Z20.822 Contact with and (suspected) exposure to COVID-19
CPT/HCPCS: 0241U; 71046

== ENCOUNTER 2023-05-09 10:21 | Day surgery (SDC) | payer MEDICARE, OTHER, SELFPAY ==
[2018-01-10 01:03] VITALS: BMI 29.9
--- NOTE | 2023-05-09 | PATH_ITS ---
[facility] Accession Number: [id number] No. of containers..01 Tissue . 01 Material submitted: . colon - SIGMOID POLYP . 01 Diagnosis: Sigmoid Colon Polyp: Traditional serrated adenoma. Negative for high-grade dysplasia or malignancy. Additional step sections examined. MRV 05/12/2023 1443 Local . 01 Electronically signed: . Ray Townsend MD, PhD, Pathologist NPI- [id number] . 01 Gross description: . SIGMOID POLYP: Received in formalin is 1 fragment(s) of eisenberg, soft tissue measuring 0.6 x 0.6 x 0.5 cm submitted entirely in 1 cassette(s) /VAMSHI 05/10/2023 2240 Local . 01 Pathologist provided ICD-10: D12.5 . 01 CPT . 929762 Specimen Comment: A courtesy copy of this report has been sent to [phone] Performed at: 01 [facility] [address] [place] [address] [address], [place], [place] [id number] MD Clayton Valencia MD Phone: [phone]
[2023-05-09 10:55] VITALS: BP 164/87; PULSE 89; RESP 16; TEMP 36.4; O2SAT 99
[2023-05-09] MEDS: LACTATED RINGERS 1,000 ML 120 ML IV (11:07)
--- NOTE | 2023-05-09 11:07 | P.HP_ITS ---
History of Present Illness History of Present Illness Date Patient Seen: 05/09/23 Time Patient Seen: 11:07 Chief complaint: Colonoscopy Narrative: Here for colon cancer screening. The patient reports a history of unknown histology colon polyps. [facility] Medical History Atrophic vulvovaginitis Hypothyroid Hypertension Surgical History H/O thyroidectomy Social History marital status: household members: spouse Smoking Status: Never smoker alcohol intake: current Meds Home Medications and Allergies Home Medications Medication Instructions Recorded Confirmed Type levothyroxine 25 mcg capsule 25 mcg PO DAILY 09/20/17 07/09/22 History losartan 25 mg tablet 25 mg PO DAILY 09/20/17 05/09/23 History progesterone micronized 200 mg 100 mg PO BEDTIME 07/09/22 05/09/23 History capsule (Prometrium) benzonatate 100 mg capsule 100 mg PO BID PRN cough #20 caps 08/27/22 05/09/23 Rx fluticasone propionate 50 1 spray intranasal Q12H #16 grams 08/27/22 08/27/22 Rx mcg/actuation nasal spray,suspension (Flonase Allergy Relief) estradiol 10 mcg vaginal tablet 10 mcg vaginal 2XW #25 tabs 04/20/23 Rx estradiol 0.025 mg/24 hr 1 patch transdermal 2XW #24 patches 05/02/23 05/09/23 Rx semiweekly transdermal patch levothyroxine 88 mcg tablet 88 mcg PO DAILY 05/09/23 05/09/23 History metoprolol succinate 25 mg 25 mg PO DAILY 05/09/23 05/09/23 History tablet,extended release 24 hr Allergies Allergy/AdvReac Type Severity Reaction Status Date / Time No Known Drug Allergies Allergy Verified 05/09/23 10:48 Review of Systems Review of Systems ROS: Yes All systems reviewed with the patient and are negative except as otherwise documented Exam Vital Signs (past 8 hours): - 05/09/23 10:55 Temperature 97.6 F Pulse Rate 89 Respiratory Rate 16 Blood Pressure 164/87 H Pulse Oximetry 99 Oxygen Delivery Method Room Air Oxygen Delivery Method Room Air Const General: cooperative HENMT Head: normal to inspection Eyes General: appearance normal, both eyes and all related structures Neck Neck: normal visual inspection Chest Chest: normal inspection of the chest Resp Effort & Inspection: normal respiratory effort Cardio Rate: regular rate GI Inspection: normal to inspection Skin General: no rashes or lesions noted Neuro General: patient alert and patient awake Extrem General: normal to inspection and no pedal edema Psych Appearance: grossly normal Assessment & Plan Assessment & Plan narrative: 77-year-old female here for colon cancer screening. There is a remote history of unknown histology polyps. Colonoscopy is pursued today.
--- NOTE | 2023-05-09 11:09 | PM.PREOP ---
Pre-operative Note Interval Note History & Physical reviewed/Exam performed by Physician: Yes Changes to H&P: No ASA Class (for procedural sedation): II
--- NOTE | 2023-05-09 12:21 | P.OP.COLON_ITS ---
Operative Date/Time/Diagnoses Date of procedure: 05/09/23 Time of procedure: 12:21 Pre-op diagnosis: Colon cancer screening Post-op diagnosis: same Procedure & Clinicians Study performed: Colonoscopy with hot snare polypectomy Same procedure as scheduled: Yes Indications: Colon cancer screening Surgeon: Holger Hawkins Procedure Notes SCOAP/Timeout: Done Procedure in detail: After the risks and benefits were explained, written and verbal informed consent was obtained. The patient was brought into the procedure room and placed into the left lateral decubitus position. Please see anesthesia notes for sedation details. Digital rectal examination was accomplished. The scope was introduced into the patient and advanced under direct visualization to the cecum as identified by the appendiceal orifice and ileocecal valve. The scope was slowly withdrawn to carefully examine the mucosa for any defects or lesions. Comprehensive imaging was accomplished throughout the rectum including the dentate line. The colon was decompressed, the scope was then removed from the patient who tolerated the procedure well. Pediatric colonoscope Bowel prep adequate Scope withdrawal time: 20 minutes Sedation minutes: 25 Complications: none Impression: There was diverticulosis noted throughout the sigmoid. At about 15 cm from the anal verge in the distal sigmoid was a sessile polyp measuring approximately 8- 10 mm in greatest dimension. This was removed by way of hot snare polypectomy. When I 1st addressed this lesion thought it was much smaller and we addressed only a 5 mm polypoid protrusion on the polyp. After I discovered it had a larger adenomatous appearing base the entire polyp was removed with a 2nd snare effort. No additional pathology was appreciated throughout. Endoscopic diagnosis 1. Colon polyp 2. Diverticulosis Post-procedure Plan for aftercare: 1. Await histology 2. Consider repeat colonoscopy in 3 years. Disposition: PACU
[2023-05-09 12:24] VITALS: BP 103/66; PULSE 67; RESP 22; TEMP 36.4; O2SAT 95
[2023-05-09 12:29] VITALS: BP 126/90; PULSE 68; RESP 16; O2SAT 98
[2023-05-09 12:34] VITALS: BP 124/86; PULSE 61; RESP 23; O2SAT 97
== END 2023-05-09 12:43 | disposition home or self-care (01) ==
PROVIDERS: PCP Nurse Practitioner; Referring Provider Internal Medicine Gastroenterology; Visit Provider Internal Medicine Gastroenterology
PROC: 0DJD8ZZ Inspection of Lower Intestinal Tract, Via Natural or Artificial Opening Endoscopic (ICD-10-PCS; CPT 45378; principal; 2023-05-09 11:30)
DX: Z12.11 Encounter for screening for malignant neoplasm of colon (principal); K57.30 Diverticulosis of large intestine without perforation or abscess without bleeding; Z86.010 Personal history of colon polyps; D12.5 Benign neoplasm of sigmoid colon
CPT/HCPCS: 45385; J2704

== ENCOUNTER 2023-08-12 22:06 | Emergency (ER) | payer MEDICARE, OTHER, SELFPAY ==
[2018-01-10 01:03] VITALS: BMI 29.9
[2023-08-12 22:12] VITALS: BP 195/91; PULSE 70; RESP 16; TEMP 37; O2SAT 99; BMI 30.7
--- NOTE | 2023-08-12 22:50 | ED.ANIMALBIT ---
HPI - Animal Bite General Chief Complaint: Animal Bite Stated Complaint: tick on rt ear Time Seen by Provider: 08/12/23 22:24 Source: patient and family Mode of arrival: Family Vehicle History of Present Illness HPI narrative: 77-year-old female presents with a tick on the back of her right ear. She noticed some pain behind her ear but initially thought it was an earring. She had her has been check her ear and they found a tick. They were afraid to move it themselves and so they presented to the ER. Patient states that all she and her have done today is go out in the yard Related Data Home Medications Medication Instructions Recorded Confirmed levothyroxine 25 mcg capsule 25 mcg PO DAILY 09/20/17 07/09/22 losartan 25 mg tablet 25 mg PO DAILY 09/20/17 05/09/23 progesterone micronized 200 mg 100 mg PO BEDTIME 07/09/22 05/09/23 capsule (Prometrium) levothyroxine 88 mcg tablet 88 mcg PO DAILY 05/09/23 05/09/23 metoprolol succinate 25 mg 25 mg PO DAILY 05/09/23 05/09/23 tablet,extended release 24 hr Previous Rx's Medication Instructions Recorded benzonatate 100 mg capsule 100 mg PO BID PRN cough #20 caps 08/27/22 fluticasone propionate 50 1 spray intranasal Q12H #16 grams 08/27/22 mcg/actuation nasal spray,suspension (Flonase Allergy Relief) estradiol 10 mcg vaginal tablet 10 mcg vaginal 2XW #25 tabs 04/20/23 estradiol 0.025 mg/24 hr 1 patch transdermal 2XW #24 patches 05/02/23 semiweekly transdermal patch Allergies Allergy/AdvReac Type Severity Reaction Status Date / Time No Known Drug Allergies Allergy Verified 05/09/23 10:48 Review of Systems Review of Systems Narrative: See HPI Patient History Medical History Atrophic vulvovaginitis Hypothyroid Hypertension Surgical History H/O thyroidectomy Social History marital status: household members: spouse Smoking Status: Never smoker alcohol intake: current Smoking Status: Never smoker alcohol intake frequency: a few times a week Substance Use Type: does not use Exam Initial Vital Signs Initial Vital Signs: Vital Signs Temperature 98.6 F 08/12/23 22:12 Pulse Rate 70 08/12/23 22:12 Respiratory Rate 16 08/12/23 22:12 Blood Pressure 195/91 H 08/12/23 22:12 Pulse Oximetry 99 08/12/23 22:12 Oxygen Delivery Method Room Air 08/12/23 22:12 Const: Awake, alert, anxious Skin: small, nonengorged living tick on back of right earlobe Neuro: AO x3, CN II-XII grossly intact, moves all extremities Procedures Foreign Body EAR Location: ear canal (R) ([place]) Foreign Body Removed: yes Course Orders Ordered: Discontinued Medications Doxycycline Hyclate (Doxycycline Hyclate 100 Mg Tablet) 200 mg PO NOW ONE Stop: 08/12/23 22:51 Last Admin: 08/12/23 22:56 Dose: 200 mg Documented By: MAGDALENA Vital Signs Vital signs: Vital Signs - 8 hr 08/12/23 22:12 Temperature 98.6 F Pulse Rate 70 Respiratory Rate 16 Blood Pressure 195/91 H Pulse Oximetry 99 Oxygen Delivery Method Room Air MDM - Animal Bite MDM Narrative Medical decision making narrative: Tick on back of right ear. Using tweezers the head of the tick was grasped and removed from the ear. There was no remaining tick pieces left behind. Tick was placed in a specimen cup and disposed of. Patient was extremely worried about Lyme disease. There is clinically very low suspicion for Lyme based on limited duration of tick presence as well as low prevalence of the disease here, however 200mg doxycycline given as ppx. Discharge Plan Departure Patient Disposition: Home Clinical Impression: Tick bite Instructions: How to Remove a Tick Activity Restrictions/Additional Instructions: The tick was completely removed and disposed of. You has been given a prophylactic dose of doxycycline. A single dose should suffice. Follow up as needed with the primary care physician. Prescriptions: No Action benzonatate 100 mg capsule 100 mg PO BID PRN (Reason: cough) Qty: 20 0RF fluticasone propionate [Flonase Allergy Relief] 50 mcg/actuation spray,suspension 1 spray intranasal Q12H Qty: 16 0RF Rx Instructions: administer into each nostril estradiol 10 mcg tablet 10 mcg vaginal 2XW Qty: 25 3RF estradiol 0.025 mg/24 hr patch semiweekly 1 patch transdermal 2XW Qty: 24 3RF losartan 25 mg tablet 25 mg PO DAILY levothyroxine 25 mcg capsule 25 mcg PO DAILY progesterone micronized [Prometrium] 200 mg capsule 100 mg PO BEDTIME levothyroxine 88 mcg tablet 88 mcg PO DAILY metoprolol succinate 25 mg tablet extended release 24 hr 25 mg PO DAILY Referrals: Nae Rajan ARNP [Primary Care Provider] - Stand Alone Forms: Patient Portal/API
[2023-08-12] MEDS: DOXYCYCLINE HYCLATE 100 MG TABLET 200 MG PO (22:56)
== END 2023-08-12 23:02 | disposition home or self-care (01) ==
PROVIDERS: Emergency Provider Emergency Medicine; PCP Nurse Practitioner
DX: S00.461A Insect bite (nonvenomous) of right ear, initial encounter (principal); W57.XXXA Bitten or stung by nonvenomous insect and other nonvenomous arthropods, initial encounter; Y93.9 Activity, unspecified; Y92.096 Garden or yard of other non-institutional residence as the place of occurrence of the external cause
CPT/HCPCS: 99283

== ENCOUNTER → 2023-09-08 07:03 | Outpatient (CLI) | payer MEDICARE, OTHER, SELFPAY ==
[2018-01-10 01:03] VITALS: BMI 29.9
[2023-09-08 08:03] LABS: Add Manual Diff / Slide Review NO; Basophils Absolute Auto 0 /uL (0-100); Basophils Percent Auto 0.4 % (0-2); Eosinophils Absolute Auto 100 /uL (0-450); Eosinophils Percent Auto 0.8 % (2-4); Hematocrit 36.9 % (36-46); Hemoglobin 12.5 g/dL (12.0-16.0); Lymphocytes Absolute Auto 1000 /uL (1100-4500); Lymphocytes Percent Auto 16.2 % (25-40); Mean Corpuscular HGB Conc 33.8 % (30-36); Mean Corpuscular Hemoglobin 31.2 PG (26-34); Mean Corpuscular Volume 92.4 fL (80-100); Monocytes Absolute Auto 700 /uL (0-900); Monocytes Percent Auto 10.2 % (3-14); Neutrophils Absolute Auto 4600 /uL (1500-7000); Neutrophils Percent Auto 72.4 % (50-75); Platelet Count 230 X10^3/uL (150-400); Red Blood Cell Count 3.99 X10^6/uL (4.0-5.2); White Blood Cell Count 6.4 X10^3/uL (4.5-11.0)
[2023-09-08 08:33] LABS: Alanine Aminotransferase 22 IU/L (<35); Albumin 3.9 g/dL (3.5-5.0); Albumin Globulin Ratio 1.6 (1.0-2.8); Alkaline Phosphatase 90 U/L (38-126); Aspartate Aminotransferase 30 IU/L (14-36); BUN Creatinine Ratio 16.5 (6-22); Bilirubin Total 0.6 mg/dL (0.2-1.3); Blood Urea Nitrogen 14 mg/dL (7-17); Calcium 8.7 mg/dL (8.4-10.2); Carbon Dioxide 32 mmol/L (22-32); Chloride 102 mmol/L (98-107); Cholesterol 170 mg/dL (140-199); Estimated Glomerular Filt Rate > 60 mL/min (>60); Globulin 2.4 g/dL (1.7-4.1); Glucose 112 mg/dL (80-110); HDL Cholesterol 88 mg/dL (40-60); HEMOLYSIS < 15 (0-50); LDL Cholesterol Calculated 66 mg/dL (<100); Potassium 4.4 mmol/L (3.4-5.1); Sodium 138 mmol/L (137-145); Total Protein 6.3 g/dL (6.3-8.2); Triglycerides 78 mg/dL (35-150)
[2023-09-08 08:58] LABS: Thyroid Stimulating Hormone 2.49 uIU/mL (0.47-4.68)
== END ==
LOC: LAB 07:04
PROVIDERS: PCP Nurse Practitioner; Referring Provider Nurse Practitioner; Visit Provider Nurse Practitioner
DX: I10 Essential (primary) hypertension (principal); E03.9 Hypothyroidism, unspecified
CPT/HCPCS: 36415; 80053; 80061; 84443; 85025

== ENCOUNTER → 2023-10-27 15:56 | Outpatient (CLI) | payer MEDICARE, OTHER, SELFPAY ==
[2018-01-10 01:03] VITALS: BMI 29.9
--- NOTE | 2023-10-27 15:57 | DI.ECHO.S_ITS ---
[facility] : : [address] : : [place] : : [id number] : : Phone: [phone] Echocardiogram Report + + :Name: AGUILA VALLEJO Study Date: 10/27/2023 Height: 66 in : :Hospital ReadingLocation: Weight: 188 lb : : Gender: Female BSA: 1.9 m2 : :: 1945 Age: 77 yrs BP: 114/82 mmHg: :Reason For Study: LEFT BUNDLE-BRANCH BLOCK : :Ordering Physician: ATUL, : :LISA Performed By: Jaswant Karimi : :Referring: LISA BRAUN : + + Interpretation Summary 1) Normal left ventricular thickness and size with low normal systolic function (EF 50-55%). 2) Normal right ventricular size and function. 3) No significant valvular abnormalities. 4) Compared to the Echo done 07/22/2022, no significant change. Procedure: A two-dimensional transthoracic echocardiogram with color flow and Doppler was performed. The study quality was technically adequate. Comparison is made with the echocardiogram of 07/22/2022. The heart rate ranged between 48-71 bpm during the study. The patient had a bundle branch block rhythm during the exam. Left Ventricle: The left ventricle is normal in size. Left ventricular wall thickness is mildly increased. The ejection fraction is estimated to be 50- 55%. Septal motion is consistent with conduction abnormality. Right Ventricle: The right ventricle is normal size. The right ventricular systolic function is normal. Atria: The left atrium is moderately dilated. Right atrial size is normal. The interatrial septum grossly appears intact with no obvious evidence for an atrial septal defect. Mitral Valve: The mitral valve is normal. There is no mitral valve stenosis. There is trace mitral regurgitation. Aortic Valve: The aortic valve is trileaflet. There is no aortic valve stenosis. No aortic regurgitation is present. Tricuspid Valve: The tricuspid valve is normal. There is no tricuspid stenosis. There is trace tricuspid regurgitation. The right ventricular systolic pressure is estimated to be at least 28.2 mmHg based on an estimated right atrial pressure of 3 mm Hg. Pulmonic Valve: The pulmonic valve is not well visualized. There is no pulmonic valvular stenosis. There is trace pulmonic regurgitation. Great Vessels: The aortic root is normal size. The dimensions of the ascending aorta are normal. The IVC is of normal diameter and collapses greater than 50% with a sniff. This suggests a low right atrial pressure of 3 mm Hg. Pericardium/ Pleura There is no pericardial effusion. There is no pleural effusion. MMode/2D Measurements & Calculations LVIDd: 4.8 cm LVOT diam: 2.1 cm LVIDs: 3.9 cm Ao root diam: 3.3 cm FS: 18.8 % asc Aorta Diam: 3.3 cm IVSd: 1.3 cm Ao Arch Diam (Prox Trans): 2.6 cm LVPWd: 0.83 cm LV cortes. diameter/BSA (cm/m^2): 2.4 LV sys. diameter/BSA (cm/m^2): 2.0 LA A2 area: 23.1 cm2 RA long axis: 4.6 cm LA A4 area: 26.3 cm2 RA area: 17.1 cm2 LA length (vol): 5.8 cm RA vol: 53.8 ml LA vol: 89.5 ml RA : 27.6 ml/m2 LA vol index: 46.0 ml/m2 IVC diam: 1.2 cm RVD1 (basal): 4.0 cm RVD2 (mid): 3.7 cm TAPSE: 2.9 cm Doppler Measurements & Calculations Ao V2 max: 123.2 cm/sec LVOT Max Venkata: 77.1 cm/sec Ao V2 mean: 84.8 cm/sec LV V1 max P.4 mmHg Ao max P.1 mmHg LV V1 VTI: 19.9 cm Ao mean P.3 mmHg GURU(I,D): 2.6 cm2 Ao V2 VTI: 27.8 cm GURU(V,D): 2.2 cm2 sev ratio: 0.72 GURU indexed to BSA (cm^2/m^2): 1.3 MV E max venkata: 66.3 cm/sec TR max venkata: 251.0 cm/sec MV A max venkata: 88.4 cm/sec TR max P.2 mmHg MV E/A: 0.75 PA V2 max: 93.8 cm/sec Med Peak E' Venkata: 4.0 cm/sec PA V2 mean: 69.1 cm/sec E/E' med: 16.8 PA mean P.1 mmHg Lat Peak E' Venkata: 5.7 cm/sec PA pr(Accel): 25.9 mmHg E/E' lat: 11.7 E/e' average: 14.2 MV dec time: 0.44 sec SV(LVOT): 71.5 ml Reading Physician:11:59 AM
== END ==
PROVIDERS: PCP Nurse Practitioner; Referring Provider Internal Medicine Cardiovascular Disease; Visit Provider Internal Medicine Cardiovascular Disease
DX: I44.7 Left bundle-branch block, unspecified (principal)
CPT/HCPCS: 93306